=== PATIENT | male | born 1960 | race Caucasian/White ===

== ENCOUNTER 2019-08-11 15:51 | Outpatient (CLI) | payer MEDICARE, OTHER, SELFPAY ==
[2019-08-11 16:20] LABS: Basophils Percent Auto 0.1 % (0.2-1.2); Eosinophils Absolute Auto 0.1 K/mm3 (0-0.3); Eosinophils Percent Auto 1.2 % (0-4.4); Hematocrit 36.9 % (42.0-52.0); Hemoglobin 9.9 g/dL (14.0-18.0); Immature Granulocyte Absolute 0.04 K/mm3 (0.00-0.031); Immature Granulocyte Percent A 0.6 % (0-0.5); Lymphocytes Absolute Auto 0.54 K/mm3 (0.9-3.2); Lymphocytes Percent Auto 7.9 % (18.3-44.2); Mean Corpuscular HGB Conc 26.8 g/dl (32-36); Mean Corpuscular Hemoglobin 21.2 pg (26-34); Mean Corpuscular Volume 78.8 fl (80-100); Mean Platelet Volume 9.3 fl (7.4-10.4); Monocytes Absolute Auto 0.4 K/mm3 (0.1-0.6); Monocytes Percent Auto 6.3 % (2.6-8.5); Neutrophils Absolute Auto 5.7 K/mm3 (1.3-6.7); Neutrophils Percent Auto 83.9 % (45.5-73.1); Platelet Count Result 153 k/mm3 (150-375); Red Blood Count 4.68 M/mm3 (4.6-6.20); Red Cell Distribution Width 20.5 % (11.5-14.5); White Blood Count 6.8 K/mm3 (4.5-10.0)
[2019-08-11 16:31] LABS: Estimated Glomerular Filt Rate > 60
[2019-08-11 16:43] LABS: Alanine Aminotransferase 11 U/L (4-50); Albumin Level 3.3 g/dL (3.5-5.1); Alkaline Phosphatase 113 U/L (38-126); Aspartate Amino Transferase 16 U/L (17-59); Bilirubin,Total 0.4 mg/dL (0.2-1.3); Blood Urea Nitrogen 17 mg/dL (9-20); Calcium 9.6 mg/dL (8.4-10.2); Carbon Dioxide 28 mmol/L (22-30); Chloride 98 mmol/L (98-107); Cholesterol 108 mg/dL (0-200); Glucose 123 mg/dL (75-110); HDL Direct 26 mg/dL; Potassium 4.6 mmol/L (3.4-5.0); Sodium 135 mmol/L (137-145); Triglycerides 242 mg/dL (<150)
[2019-08-11 16:47] LABS: Hypochromasia 1+ (NORMAL); Ovalocytes 1+ (NORMAL); Platelet Estimate Adequate (Adequate)
[2019-08-11 16:48] LABS: LDL Cholesterol Direct 55 mg/dL
[2019-08-11 17:47] LABS: Folic Acid 4.6 ng/mL (2.76->20); Vitamin B12 > 1000.0 pg/mL (239-931)
[2019-08-11 18:52] LABS: Iron 34 ug/dL (49-181)
[2019-08-11 18:57] LABS: Percent Iron Saturation 12 % (20-50)
== END 2019-08-11 15:52 | disposition home or self-care (01) ==
PROVIDERS: PCP Internal Medicine; Visit Provider Internal Medicine
DX: D64.9 Anemia, unspecified (principal); E78.5 Hyperlipidemia, unspecified; R53.83 Other fatigue
CPT/HCPCS: 36415; 80053; 80061; 82607; 82746; 83540; 83550; 84443; 85025

== ENCOUNTER 2019-09-02 17:37 | Outpatient (CLI) | payer MEDICARE, OTHER, SELFPAY ==
[2019-09-02 17:58] LABS: Add Urine Microscopic? YES; Appearance Urine Cloudy (Clear); Bacteria Urine 2+ /hpf; Bilirubin Urine Negative (Negative); Blood Urine 1+ (Negative); Calcium Oxalate Crystals Urine Present /hpf; Color Urine Red (Yellow); Glucose Urine UA Negative (Negative); Ketones Urine Negative (Negative); Leukocyte Esterase Ur 3+ LEU/UL (NEGATIVE); Mucus Urine Rare /lpf; Nitrate Urine Positive (Negative); Protein Urine 1+ mg/dL (Negative); Specific Grav Ur 1.011 (1.001-1.035); Squamous Epithelial Cell Urine Few /hpf (Few); Urobilinogen Urine Negative mg/dL (<2.0); WBC Urine 31-50 /hpf (0-3)
== END 2019-09-02 17:38 | disposition home or self-care (01) ==
LOC: ANHLAB 17:39
PROVIDERS: PCP Internal Medicine; Visit Provider Physician Assistant
DX: R30.0 Dysuria (principal)
CPT/HCPCS: 81001; 87077; 87086; 87088; 87186

== ENCOUNTER 2019-09-21 18:20 | Emergency (ER) | payer MEDICARE, OTHER, SELFPAY ==
--- NOTE | ~2019-09-21 | XR_ITS ---
EXAMINATION: XR chest 1V INDICATION: Chills and sweats TECHNIQUE: Portable AP chest at 2109 hours COMPARISON: 05/12/2014 FINDINGS: There are chronic opacities of the left lung base and blunting of the left costophrenic ang le. The lungs are free of acute opacities. There is no pleural effusion or pneumothorax. The cardiome diastinal silhouette is normal. IMPRESSION: 1. No acute cardiopulmonary abnormality. Reviewed, dictated and finalized at location A.
--- NOTE | 2019-09-21 18:35 | ED.MALEGU ---
HPI - Male Genitourinary General Chief complaint: Urogenital-Male Stated complaint: UTI? Time Seen by Provider: 09/21/19 18:34 Source: patient Mode of arrival: wheelchair Limitations: no limitations History of Present Illness HPI Narrative: A 59 y/o male presents to the ED with c/o possible UTI. Pt states that he has a PMHx of frequent UTI's and has had a suprapubic catheter for the last 20 years. The patient notes that he changes his catheter every 2 weeks, and last changed it this morning. He reports foul smelling urine, diaphoresis, chills, and ABD pain for the last 3 weeks. Pt consulted his infectious disease physician, Dr. Donovan, and they advised him to go to Dr. Harris. The patient could not get ahold of Dr. Harris, so he decided to go to the ED. He denies N/V/D and fever. Pt is usually prescribed Ceftazidime for his UTI's. He is a quadriplegic. MD Complaint: other (Possible UTI) Onset (ago): week(s) (3) Duration: constant Severity: similar to previous episodes Context: indwelling catheter and other (Frequent UTI's) Associated symptoms: Reports other (Foul smelling urine, diaphoresis, chills, ABD pain) Related Data Home Medications Medication Instructions Recorded Confirmed calcium polycarbophil 1,250 mg PO DAILY 05/08/19 05/08/19 diazepam 5 mg BID 06/13/19 06/13/19 glycopyrrolate 2 mg TID 06/13/19 06/13/19 omeprazole 20 mg DAILY 06/13/19 06/13/19 potassium citrate 10 meq PO TID 06/13/19 06/13/19 sertraline 100 mg DAILY 06/13/19 06/13/19 Allergies Allergy/AdvReac Type Severity Reaction Status Date / Time No Known Allergies Allergy Verified 06/13/19 15:53 Review of Systems Review of Systems: All systems reviewed & are unremarkable except as noted in HPI and below Constitutional: Constitutional: Reports chills and Denies fever(s) Cardiovascular: Cardiovascular: Reports other (Diaphoresis) Gastrointestinal: Gastrointestinal: Reports abdominal pain, Denies diarrhea, Denies nausea and Denies vomiting Genitourinary: Genitourinary: Reports other (Foul smelling urine) PMFSH Past Medical History Medical History (Updated 09/21/19 @ 21:22 by Hailey Harvey MD) Anxiety Arthritis Chronic back pain Depression DVT (deep venous thrombosis) Femur fracture, right Frequent UTI GERD (gastroesophageal reflux disease) History of blood transfusion Kidney stones Osteomyelitis Perforated ulcer Peripheral neuropathy Pneumonia PVD (peripheral vascular disease) 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 Renal disease Suprapubic catheter Tracheostomy in place Surgical History Surgical History (Updated 09/21/19 @ 19:01 by Sherry Sloan) History of cholecystectomy History of left nephrectomy History of skin graft History of spinal fusion C5-C6 Family History Family History Mother Hypertension Father Family history of diabetes mellitus in first degree relative, Onset Age: 85 Patient's father is Other Diabetes mellitus Social History Social History Smoking status: Former smoker Second hand tobacco smoke exposure: No Smoking end date: 07/09/97 Alcohol intake: never Gender identity (if verbalized by the patient): Male Exam Narrative: Exam Narrative: General appearance: Well-developed, well-nourished Skin: Normal color, left foot decubitus ulcer is well healed, right foot decubitus ulcer 5 x 5 cm, yellow discharge, surrounded by erythema, warm. Sacral decubitus ulcer showed no signs of infection. Is getting better according to patient's . Head: Normocephalic, nontraumatic Eyes: Clear conjunctiva ENT: Oropharynx normal, ears normal, nose normal Neck: Supple, nontender Chest and respiratory: Airway patent, no respiratory distress, no accessory muscle use Heart: Regular rate/rhythm Abdomen: Soft, nontender, no organomegaly, quiet bowel sounds Vascular: Normal peripher
[2019-09-21 18:56] VITALS: BP 176/82; PULSE 93; RESP 16; TEMP 36.4; O2SAT 98
[2019-09-21 19:51] LABS: Basophils Percent Auto 0.4 % (0.2-1.2); Eosinophils Absolute Auto 0.2 K/mm3 (0-0.3); Eosinophils Percent Auto 1.4 % (0-4.4); Hematocrit 47.8 % (42.0-52.0); Immature Granulocyte Absolute 0.07 K/mm3 (0.00-0.031); Immature Granulocyte Percent A 0.6 % (0-0.5); Lymphocytes Absolute Auto 1.64 K/mm3 (0.9-3.2); Lymphocytes Percent Auto 14.5 % (18.3-44.2); Mean Corpuscular HGB Conc 27.2 g/dl (32-36); Mean Corpuscular Volume 77.3 fl (80-100); Mean Platelet Volume 8.8 fl (7.4-10.4); Monocytes Absolute Auto 0.8 K/mm3 (0.1-0.6); Monocytes Percent Auto 6.9 % (2.6-8.5); Neutrophils Absolute Auto 8.6 K/mm3 (1.3-6.7); Neutrophils Percent Auto 76.2 % (45.5-73.1); Platelet Count Result 291 k/mm3 (150-375); Red Blood Count 6.18 M/mm3 (4.6-6.20); Red Cell Distribution Width 17.9 % (11.5-14.5); White Blood Count 11.3 K/mm3 (4.5-10.0)
--- NOTE | 2019-09-21 19:55 | PC.NURSE ---
assumed care of pt at this time. report from ABHI Lucio
[2019-09-21 20:01] LABS: Add Urine Microscopic? NO; Appearance Urine Clear (Clear); Bacteria Urine Trace /hpf; Bilirubin Urine Negative (Negative); Blood Urine Negative (Negative); Color Urine Colorless (Yellow); Glucose Urine UA Negative (Negative); Ketones Urine Negative (Negative); Leukocyte Esterase Ur Negative LEU/UL (Negative); Nitrate Urine Negative (Negative); Protein Urine Negative (Negative); RBC Urine 0-2 /hpf (0-2); Specific Grav Ur 1.005 (1.001-1.035); Squamous Epithelial Cell Urine Rare /hpf (Few); Urobilinogen Urine Negative mg/dL (<2.0); WBC Urine 0-3 /hpf
[2019-09-21 20:02] LABS: Lactic Acid Reflex 1.7 mmol/L (0.7-2.1)
[2019-09-21 20:03] LABS: Alanine Aminotransferase 11 U/L (4-50); Albumin Level 4.2 g/dL (3.5-5.1); Alkaline Phosphatase 181 U/L (38-126); Aspartate Amino Transferase 23 U/L (17-59); Bilirubin,Total 0.7 mg/dL (0.2-1.3); Blood Urea Nitrogen 13 mg/dL (9-20); Calcium 10.5 mg/dL (8.4-10.2); Carbon Dioxide 32 mmol/L (22-30); Chloride 98 mmol/L (98-107); Estimated Glomerular Filt Rate > 60; Glucose 105 mg/dL (75-110); Sodium 139 mmol/L (137-145)
[2019-09-21 20:12] LABS: Hypochromasia 1+ (NORMAL); Platelet Estimate Adequate (Adequate)
[2019-09-21 20:14] LABS: Anisocytosis 2+ (NORMAL)
[2019-09-21 20:30] VITALS: BP 91/62; PULSE 97; RESP 21; TEMP 36.2; O2SAT 99
[2019-09-21 20:55] VITALS: BP 100/68; PULSE 90; RESP 16; O2SAT 99
[2019-09-21 21:20] VITALS: TEMP 36.4
[2019-09-21 22:00] VITALS: BP 108/84; PULSE 95; RESP 16; O2SAT 99
[2019-09-21 23:20] VITALS: BP 102/75; PULSE 78; RESP 17; O2SAT 100
== END 2019-09-21 23:20 | disposition home or self-care (01) ==
PROVIDERS: Emergency Provider Emergency Medicine; PCP Internal Medicine
DX: L03.115 Cellulitis of right lower limb (principal); M19.90 Unspecified osteoarthritis, unspecified site; G82.50 Quadriplegia, unspecified; S14.109S Unspecified injury at unspecified level of cervical spinal cord, sequela; K21.9 Gastro-esophageal reflux disease without esophagitis; G62.9 Polyneuropathy, unspecified; I73.9 Peripheral vascular disease, unspecified; N28.9 Disorder of kidney and ureter, unspecified; F41.9 Anxiety disorder, unspecified; F32.9 Major depressive disorder, single episode, unspecified; Z90.5 Acquired absence of kidney; Z86.718 Personal history of other venous thrombosis and embolism; Z98.1 Arthrodesis status; Z87.442 Personal history of urinary calculi; Z87.891 Personal history of nicotine dependence; Z93.0 Tracheostomy status; X58.XXXS Exposure to other specified factors, sequela
CPT/HCPCS: 36415; 71045; 80053; 81003; 83605; 85025; 87040; 96365; 99284; J3370

== ENCOUNTER 2019-09-25 07:21 | Outpatient (RCR) | payer MEDICARE, OTHER, SELFPAY | END 2019-10-29 23:59 | disposition home or self-care (01) | LOC: ANHWOC 07:21 | PROVIDERS: PCP Internal Medicine; Visit Provider Internal Medicine | DX: L89.159 Pressure ulcer of sacral region, unspecified stage (principal) | CPT/HCPCS: 99212; G0463 ==

== ENCOUNTER 2019-09-30 14:31 | Outpatient (CLI) | payer MEDICARE, OTHER, SELFPAY ==
[2019-09-30 14:51] LABS: Basophils Percent Auto 0.2 % (0.2-1.2); Eosinophils Absolute Auto 0.1 K/mm3 (0-0.3); Eosinophils Percent Auto 1.7 % (0-4.4); Hematocrit 35.6 % (42.0-52.0); Hemoglobin 9.8 g/dL (14.0-18.0); Immature Granulocyte Absolute 0.03 K/mm3 (0.00-0.031); Immature Granulocyte Percent A 0.4 % (0-0.5); Immature Reticulocyte Fraction 13.1 % (3.0-15.9); Lymphocytes Absolute Auto 0.79 K/mm3 (0.9-3.2); Lymphocytes Percent Auto 9.6 % (18.3-44.2); Mean Corpuscular HGB Conc 27.5 g/dl (32-36); Mean Corpuscular Hemoglobin 21.5 pg (26-34); Mean Corpuscular Volume 78.2 fl (80-100); Monocytes Absolute Auto 0.6 K/mm3 (0.1-0.6); Monocytes Percent Auto 6.7 % (2.6-8.5); Neutrophils Absolute Auto 6.7 K/mm3 (1.3-6.7); Neutrophils Percent Auto 81.4 % (45.5-73.1); Platelet Count Result 179 k/mm3 (150-375); Red Blood Count 4.55 M/mm3 (4.6-6.20); Red Cell Distribution Width 17.3 % (11.5-14.5); Reticulocyte Hemoglobin Conten 20.4 pg (28.2-35.7); Reticulocyte Percent 2.01 % (0.7-4.3); Reticulocytes Absolute 0.09 B/L (32.2-175.7); White Blood Count 8.2 K/mm3 (4.5-10.0)
[2019-09-30 15:01] LABS: Hypochromasia 2+ (NORMAL); Platelet Estimate Adequate (Adequate)
[2019-09-30 17:47] LABS: Alanine Aminotransferase 7 U/L (4-50); Albumin Level 3.2 g/dL (3.5-5.1); Alkaline Phosphatase 95 U/L (38-126); Aspartate Amino Transferase 14 U/L (17-59); Bilirubin,Total 0.2 mg/dL (0.2-1.3); Blood Urea Nitrogen 16 mg/dL (9-20); Calcium 9.6 mg/dL (8.4-10.2); Carbon Dioxide 28 mmol/L (22-30); Chloride 105 mmol/L (98-107); Estimated Glomerular Filt Rate > 60; Glucose 112 mg/dL (75-110); Potassium 4.4 mmol/L (3.4-5.0); Sodium 139 mmol/L (137-145)
[2019-09-30 18:34] LABS: Iron 29 ug/dL (49-181)
[2019-09-30 18:45] LABS: Percent Iron Saturation 10 % (20-50)
[2019-10-02 22:10] LABS: Albumin 2.9 g/dL (3.8-4.8); Alpha 1 Globulin 0.5 g/dL (0.2-0.3); Alpha 2 Globulin 0.8 g/dL (0.5-0.9); Beta 1 Globulin 0.5 g/dL (0.4-0.6); Gamma Globulin 1.2 g/dL (0.8-1.7); Protein, Total 6.3 g/dL (6.1-8.1)
== END 2019-09-30 14:32 | disposition home or self-care (01) ==
PROVIDERS: PCP Internal Medicine; Visit Provider Internal Medicine Hematology & Oncology
DX: D64.9 Anemia, unspecified (principal)
CPT/HCPCS: 36415; 80053; 82728; 83540; 83550; 84155; 84165; 84590; 85025; 85046; 86334

== ENCOUNTER 2019-10-28 13:58 | Outpatient (CLI) | payer MEDICARE, OTHER, SELFPAY ==
[2019-10-28 15:46] LABS: Basophils Percent Auto 0.4 % (0.2-1.2); Eosinophils Absolute Auto 0.1 K/mm3 (0-0.3); Eosinophils Percent Auto 1.6 % (0-4.4); Hematocrit 40.4 % (42.0-52.0); Hemoglobin 11.3 g/dL (14.0-18.0); Immature Granulocyte Absolute 0.05 K/mm3 (0.00-0.031); Immature Granulocyte Percent A 0.7 % (0-0.5); Lymphocytes Absolute Auto 0.76 K/mm3 (0.9-3.2); Mean Corpuscular Hemoglobin 22.2 pg (26-34); Mean Corpuscular Volume 79.2 fl (80-100); Mean Platelet Volume 8.9 fl (7.4-10.4); Monocytes Absolute Auto 0.5 K/mm3 (0.1-0.6); Monocytes Percent Auto 6.1 % (2.6-8.5); Neutrophils Absolute Auto 6.2 K/mm3 (1.3-6.7); Neutrophils Percent Auto 81.2 % (45.5-73.1); Platelet Count Result 191 k/mm3 (150-375); Red Cell Distribution Width 20.2 % (11.5-14.5); White Blood Count 7.6 K/mm3 (4.5-10.0)
[2019-10-28 16:15] LABS: Hypochromasia 1+ (NORMAL); Platelet Estimate Adequate (Adequate)
[2019-10-28 16:16] LABS: Anisocytosis 3+ (NORMAL)
[2019-10-31 20:54] LABS: CRP, High Sensitivity >10.0 mg/L (***)
== END 2019-10-28 13:59 | disposition home or self-care (01) ==
PROVIDERS: PCP Internal Medicine; Visit Provider Internal Medicine Infectious Disease
DX: N39.0 Urinary tract infection, site not specified (principal)
CPT/HCPCS: 36415; 85025; 86141

== ENCOUNTER 2019-10-29 17:07 | Outpatient (CLI) | payer MEDICARE, OTHER, SELFPAY ==
[2019-10-29 18:20] LABS: Add Urine Microscopic? YES; Appearance Urine Clear (Clear); Bacteria Urine 1+ /hpf; Bilirubin Urine Negative (Negative); Blood Urine Negative (Negative); Color Urine Straw (Yellow); Glucose Urine UA Negative (Negative); Ketones Urine Negative (Negative); Leukocyte Esterase Ur 1+ LEU/UL (Negative); Nitrate Urine Negative (Negative); Protein Urine Negative (Negative); RBC Urine 0-2 /hpf (0-2); Squamous Epithelial Cell Urine Few /hpf (Few); Urobilinogen Urine Negative mg/dL (<2.0)
[2019-10-29 18:23] LABS: Specific Grav Ur 1.002 (1.001-1.035)
== END 2019-10-29 17:08 | disposition home or self-care (01) ==
PROVIDERS: PCP Internal Medicine; Visit Provider Internal Medicine Infectious Disease
DX: N39.0 Urinary tract infection, site not specified (principal)
CPT/HCPCS: 81001

== ENCOUNTER 2019-10-30 16:06 | Outpatient (CLI) | payer MEDICARE, OTHER, SELFPAY ==
--- NOTE | ~2019-10-30 | US_ITS ---
EXAMINATION: US renal BI EXAM DATE: 10/30/2019 16:39 INDICATION: Frequent urinary tract infection. TECHNIQUE: Multiple grayscale and Doppler images of the kidneys were obtained (by a technologist who performed the scan) and subsequently reviewed. Comparison is made to prior examination from 03/04/2014 . FINDINGS: Right kidney: There is normal contour and echogenicity. It measures 12.4 x 6.7 x 6.0 centimeters. T here are no focal renal lesions identified. There is no hydronephrosis. Left kidney: Reportedly has been resected. Unremarkable nephrectomy bed. Kelly catheter within collapsed bladder. IMPRESSION: 1. Unremarkable right kidney. Reviewed, dictated and finalized at location A.
== END 2019-10-30 16:07 | disposition home or self-care (01) ==
PROVIDERS: PCP Internal Medicine; Visit Provider Internal Medicine Infectious Disease
DX: N39.0 Urinary tract infection, site not specified (principal)
CPT/HCPCS: 76775

== ENCOUNTER 2020-06-16 07:47 | Outpatient (CLI) | payer MEDICARE, OTHER, SELFPAY ==
[2020-06-16 08:58] LABS: Basophils Percent Auto 0.6 % (0.2-1.2); Eosinophils Absolute Auto 0.2 K/mm3 (0-0.3); Eosinophils Percent Auto 2.6 % (0-4.4); Hematocrit 41.2 % (42.0-52.0); Hemoglobin 12.4 g/dL (14.0-18.0); Immature Granulocyte Absolute 0.11 K/mm3 (0.00-0.031); Immature Granulocyte Percent A 1.6 % (0-0.5); Lymphocytes Absolute Auto 0.81 K/mm3 (0.9-3.2); Lymphocytes Percent Auto 11.9 % (18.3-44.2); Mean Corpuscular HGB Conc 30.1 g/dl (32-36); Mean Corpuscular Hemoglobin 25.5 pg (26-34); Mean Corpuscular Volume 84.6 fl (80-100); Mean Platelet Volume 8.6 fl (7.4-10.4); Monocytes Absolute Auto 0.5 K/mm3 (0.1-0.6); Monocytes Percent Auto 7.9 % (2.6-8.5); Neutrophils Absolute Auto 5.1 K/mm3 (1.3-6.7); Neutrophils Percent Auto 75.4 % (45.5-73.1); Platelet Count Result 160 k/mm3 (150-375); Red Blood Count 4.87 M/mm3 (4.6-6.20); White Blood Count 6.8 K/mm3 (4.5-10.0)
[2020-06-16 09:09] LABS: Alanine Aminotransferase 10 U/L (4-50); Albumin Level 3.4 g/dL (3.5-5.1); Alkaline Phosphatase 125 U/L (38-126); Anion Gap 5 mmol/L (8-16); Aspartate Amino Transferase 14 U/L (17-59); Bilirubin,Total 0.4 mg/dL (0.2-1.3); Blood Urea Nitrogen 18 mg/dL (9-20); Calcium 9.9 mg/dL (8.4-10.2); Carbon Dioxide 31 mmol/L (22-30); Chloride 105 mmol/L (98-107); Cholesterol 109 mg/dL (0-200); Estimated Glomerular Filt Rate > 60; Glucose 94 mg/dL (75-110); HDL Direct 20 mg/dL; Potassium 4.5 mmol/L (3.4-5.0); Sodium 141 mmol/L (137-145); Triglycerides 143 mg/dL (<150)
[2020-06-16 09:20] LABS: LDL Cholesterol Direct 63 mg/dL
[2020-06-16 09:21] LABS: Parathyroid Intact 111.2 pg/mL (7.5-53.5)
[2020-06-16 09:32] LABS: Iron 33 ug/dL (49-181)
[2020-06-16 09:41] LABS: Percent Iron Saturation 13 % (20-50)
[2020-06-16 09:45] LABS: Vitamin D 25 Hydroxy 30.5 ng/mL
[2020-06-16 10:25] LABS: Folic Acid 10.2 ng/mL (2.76->20); Vitamin B12 > 1000.0 pg/mL (239-931)
== END 2020-06-16 07:48 | disposition home or self-care (01) ==
PROVIDERS: PCP Internal Medicine; Visit Provider Internal Medicine
DX: D64.9 Anemia, unspecified (principal); E83.52 Hypercalcemia; E78.5 Hyperlipidemia, unspecified; E55.9 Vitamin D deficiency, unspecified; R53.83 Other fatigue
CPT/HCPCS: 36415; 80053; 80061; 82306; 82310; 82607; 82746; 83540; 83550; 83970; 84443; 85025

== ENCOUNTER 2020-07-07 07:20 | Outpatient (RCR) | payer MEDICARE, OTHER, SELFPAY ==
--- NOTE | 2019-11-04 14:40 | PCWOUND ---
Addendum entered by Lee Butcher RN 11/06/19 09:22: should say, pt reports no significant changes. Original Note: WOCn NOTE patient cancelled due to COVID 19. reports to significant changes in wounds. Will reschedule for next month. did phone assessment.
--- NOTE | 2020-01-30 14:34 | PCWOUND ---
WOCN NOTE Patient in need of supplies for pressure wounds to bilateral posterior thigh and buttocks. Patient unable to come into the wound center due to COVID-19 restrictions.
== END 2020-07-28 23:59 | disposition home or self-care (01) ==
LOC: ANHWOC 07:20
PROVIDERS: PCP Internal Medicine; Visit Provider Internal Medicine
DX: L89.159 Pressure ulcer of sacral region, unspecified stage (principal)
CPT/HCPCS: 99212; G0463

== ENCOUNTER 2020-09-01 07:12 | Outpatient (RCR) | payer MEDICARE, OTHER, SELFPAY ==
--- NOTE | 2020-10-13 08:00 | PCWOUND ---
WOCN NOTE patient did not show up for his scheduled appointment. No phone call was made to cancel.
== END 2020-11-30 23:59 | disposition home or self-care (01) ==
LOC: ANHWOC 07:12
PROVIDERS: PCP Internal Medicine; Visit Provider Internal Medicine
DX: L89.159 Pressure ulcer of sacral region, unspecified stage (principal)
CPT/HCPCS: 99213; G0463

== ENCOUNTER 2020-12-22 07:16 | Outpatient (RCR) | payer MEDICARE, OTHER, SELFPAY | END 2021-03-22 23:59 | disposition home or self-care (01) | LOC: ANHWOC 07:16 | PROVIDERS: PCP Internal Medicine; Visit Provider Internal Medicine | DX: L89.309 Pressure ulcer of unspecified buttock, unspecified stage (principal) | CPT/HCPCS: 99212; G0463 ==

== ENCOUNTER 2021-03-04 09:28 | Outpatient (CLI) | payer MEDICARE, OTHER, SELFPAY ==
[2021-03-04 10:04] LABS: Basophils Percent Auto 0.5 % (0.2-1.2); Eosinophils Absolute Auto 0.2 K/mm3 (0-0.3); Eosinophils Percent Auto 1.9 % (0-4.4); Hematocrit 41.7 % (42.0-52.0); Hemoglobin 12.2 g/dL (14.0-18.0); Immature Granulocyte Absolute 0.13 K/mm3 (0.00-0.031); Immature Granulocyte Percent A 1.5 % (0-0.5); Lymphocytes Absolute Auto 1.14 K/mm3 (0.9-3.2); Lymphocytes Percent Auto 13.5 % (18.3-44.2); Mean Corpuscular HGB Conc 29.3 g/dl (32-36); Mean Corpuscular Hemoglobin 25.1 pg (26-34); Mean Corpuscular Volume 85.6 fl (80-100); Mean Platelet Volume 8.4 fl (7.4-10.4); Monocytes Absolute Auto 0.8 K/mm3 (0.1-0.6); Monocytes Percent Auto 9.1 % (2.6-8.5); Neutrophils Absolute Auto 6.2 K/mm3 (1.3-6.7); Neutrophils Percent Auto 73.5 % (45.5-73.1); Platelet Count Result 223 k/mm3 (150-375); Red Blood Count 4.87 M/mm3 (4.6-6.20); Red Cell Distribution Width 15.7 % (11.5-14.5); White Blood Count 8.4 K/mm3 (4.5-10.0)
[2021-03-04 10:26] LABS: Alanine Aminotransferase 9 U/L (4-50); Albumin Level 3.8 g/dL (3.5-5.1); Alkaline Phosphatase 108 U/L (38-126); Anion Gap 8 mmol/L (8-16); Aspartate Amino Transferase 16 U/L (17-59); Bilirubin,Total 0.3 mg/dL (0.2-1.3); Blood Urea Nitrogen 16 mg/dL (9-20); Calcium 10.3 mg/dL (8.4-10.2); Carbon Dioxide 27 mmol/L (22-30); Chloride 102 mmol/L (98-107); Cholesterol 135 mg/dL (0-200); Estimated Glomerular Filt Rate > 60; Glucose 97 mg/dL (65-110); HDL Direct 27 mg/dL; Potassium 4.2 mmol/L (3.4-5.0); Sodium 137 mmol/L (137-145); Triglycerides 200 mg/dL (<150)
[2021-03-04 10:38] LABS: LDL Cholesterol Direct 74 mg/dL
[2021-03-04 10:49] LABS: Erythrocyte Sedimentation Rate 27 mm/hr (0-20)
[2021-03-04 10:57] LABS: Thyroid Stimulating Hormone 0.727 uIU/mL (0.465-4.680)
[2021-03-04 10:59] LABS: Vitamin D 25 Hydroxy 32.1 ng/mL
[2021-03-04 12:04] LABS: Atypical Lymphocytes Present; Platelet Estimate Adequate (Adequate)
[2021-03-04 14:22] LABS: Iron 40 ug/dL (49-181); Percent Iron Saturation 21 % (20-50)
[2021-03-04 15:37] LABS: Folic Acid 9.1 ng/mL (2.76->20); Vitamin B12 > 1000.0 pg/mL (239-931)
[2021-03-04 18:50] LABS: Prostate Specific Antigen 0.5 ng/mL (< OR = 4.0)
== END 2021-03-04 09:29 | disposition home or self-care (01) ==
PROVIDERS: PCP Internal Medicine; Visit Provider Internal Medicine
DX: E61.1 Iron deficiency (principal); E78.5 Hyperlipidemia, unspecified; R53.83 Other fatigue; Z12.5 Encounter for screening for malignant neoplasm of prostate; M54.9 Dorsalgia, unspecified; E53.8 Deficiency of other specified B group vitamins; E55.9 Vitamin D deficiency, unspecified
CPT/HCPCS: 36415; 80053; 80061; 82306; 82607; 82728; 82746; 83540; 83550; 84153; 84443; 85025; 85652; G0103

== ENCOUNTER 2021-05-08 17:46 | Emergency (ER) | payer MEDICARE, OTHER, SELFPAY ==
[2021-05-08 17:57] VITALS: BP 95/48; PULSE 109; RESP 18; TEMP 36.7; O2SAT 100
--- NOTE | 2021-05-08 18:27 | ED.EYEPROB ---
HPI - Eye Problem General Chief complaint: Eye Problems Stated complaint: Eye pain Source: patient and RN notes reviewed Limitations: no limitations History of Present Illness HPI Narrative: The patient, who is a C5-7 quadriparetic in wheelchair, presents with eye discomfort. Patient states he wears extended contact lens in his right eye for near vision. He removed the lens and replace it with his 's assistance today and developed discomfort afterwards. He complains of mild watery discharge and discomfort that is worse with blinking unimproved with tobramycin cream his spouse had; no significant infectious discharge, photophobia. He added his and he has long fingernails, when she assists him. He comments his local pharmacy has closed, so was advised he may take previous home pain meds including opiates [at half tab]. Related Data Home Medications Medication Instructions Recorded Confirmed potassium citrate 10 meq PO TID 06/13/19 05/08/21 ascorbic acid (vitamin C) 500 mg 1,000 mg PO DAILY cap 10/30/19 05/08/21 capsule ferrous sulfate 324 mg (65 mg 324 mg PO DAILY 10/30/19 05/08/21 iron) tablet,delayed release sennosides 8.6 mg-docusate sodium 1 tab-cap PO DAILY 10/30/19 01/03/21 50 mg tablet bupropion HCl 150 mg 24 hr tablet, 150 mg PO QAM 04/19/21 05/08/21 extended release cod liver oil 1 cap PO DAILY 04/19/21 05/08/21 donepezil 5 mg tablet 10 mg PO DAILY tablet 04/19/21 05/08/21 duloxetine 60 mg capsule,delayed 60 mg PO DAILY 04/19/21 05/08/21 release gabapentin 300 mg capsule 300 mg PO BID cap 04/19/21 04/19/21 lysine 1,000 mg tablet 1,000 mg PO DAILY 04/19/21 04/19/21 mecobalamin (vitamin B12) 5,000 mcg PO 04/19/21 04/19/21 mcg disintegrating tablet vitamin E (dl, acetate) 180 mg 180 mg PO DAILY 04/19/21 05/08/21 (400 unit) capsule baclofen 40 mg PO TID 05/08/21 05/08/21 cholecalciferol (vitamin D3) 25 mcg PO DAILY 05/08/21 05/08/21 ciprofloxacin HCl 250 mg PO DAILY 05/08/21 05/08/21 diazepam 5 mg PO TID 05/08/21 05/08/21 duloxetine 30 mg PO DAILY 05/08/21 05/08/21 vortioxetine [Trintellix] 10 mg PO DAILY 05/08/21 05/08/21 Allergies Allergy/AdvReac Type Severity Reaction Status Date / Time No Known Allergies Allergy Verified 05/08/21 18:10 Review of Systems Review of Systems: General/Constitutional: No weight loss,fever Eyes: REPORTS: Redness,discharge Ears/Nose/Throat: No: Epistaxis,ear discharge Respiratory: Denies: Hemoptysis Gastrointestinal: No Vomiting, Bleeding-rectal Skin: No Lumps, eruption Neurologic: No Focal Weakness,Sz Hematologic: Denies: Petechiae/Purpura Psychiatric: No: Suicida ideationl All Other Systems: Reviewed and Negative [facility] Past Medical History Medical History (Updated 05/09/21 @ 00:01 by Johnathon Greer) Anxiety Arthritis Chronic back pain Depression DVT (deep venous thrombosis) Femur fracture, right Frequent UTI GERD (gastroesophageal reflux disease) History of blood transfusion Kidney stones Osteomyelitis Perforated ulcer Peripheral neuropathy Pneumonia PVD (peripheral vascular disease) 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
[2021-05-08] MEDS: predniSONE 20 MG TABLET 60 MG PO (18:37)
== END 2021-05-08 18:41 | disposition home or self-care (01) ==
PROVIDERS: Emergency Provider Emergency Medicine; PCP Internal Medicine
DX: S05.01XA Injury of conjunctiva and corneal abrasion without foreign body, right eye, initial encounter (principal); X58.XXXA Exposure to other specified factors, initial encounter; G82.50 Quadriplegia, unspecified; S14.107S Unspecified injury at C7 level of cervical spinal cord, sequela; X58.XXXS Exposure to other specified factors, sequela; M19.90 Unspecified osteoarthritis, unspecified site; F41.9 Anxiety disorder, unspecified; F32.A Depression, unspecified; Z86.718 Personal history of other venous thrombosis and embolism; K21.9 Gastro-esophageal reflux disease without esophagitis; G62.9 Polyneuropathy, unspecified; I73.9 Peripheral vascular disease, unspecified; Z96.0 Presence of urogenital implants; Z93.0 Tracheostomy status; Z90.5 Acquired absence of kidney
CPT/HCPCS: 99213; A9270; G0463; J7512

== ENCOUNTER 2021-05-11 07:18 | Outpatient (RCR) | payer MEDICARE, OTHER, SELFPAY ==
--- NOTE | 2021-05-05 08:39 | PCWOUND ---
WOCN NOTE patient left message to cancel for Today's appointment due to its raining. states he will call later in the day to reschedule.
== END 2021-08-09 23:59 | disposition home or self-care (01) ==
LOC: ANHWOC 07:18
PROVIDERS: PCP Internal Medicine; Visit Provider Internal Medicine
DX: L89.309 Pressure ulcer of unspecified buttock, unspecified stage (principal)
CPT/HCPCS: 99212; G0463

== ENCOUNTER 2021-06-06 16:00 | Outpatient (CLI) | payer MEDICARE, OTHER, SELFPAY ==
[2021-06-06 16:22] LABS: Basophils Percent Auto 0.3 % (0.2-1.2); Eosinophils Absolute Auto 0.1 K/mm3 (0-0.3); Eosinophils Percent Auto 1.7 % (0-4.4); Hematocrit 36.8 % (42.0-52.0); Hemoglobin 10.9 g/dL (14.0-18.0); Immature Granulocyte Absolute 0.13 K/mm3 (0.00-0.031); Immature Granulocyte Percent A 1.7 % (0-0.5); Lymphocytes Absolute Auto 0.67 K/mm3 (0.9-3.2); Lymphocytes Percent Auto 8.5 % (18.3-44.2); Mean Corpuscular HGB Conc 29.6 g/dl (32-36); Mean Corpuscular Hemoglobin 24.5 pg (26-34); Mean Corpuscular Volume 82.9 fl (80-100); Mean Platelet Volume 8.4 fl (7.4-10.4); Monocytes Absolute Auto 0.7 K/mm3 (0.1-0.6); Monocytes Percent Auto 8.3 % (2.6-8.5); Neutrophils Absolute Auto 6.2 K/mm3 (1.3-6.7); Neutrophils Percent Auto 79.5 % (45.5-73.1); Platelet Count Result 203 k/mm3 (150-375); Red Blood Count 4.44 M/mm3 (4.6-6.20); Red Cell Distribution Width 15.8 % (11.5-14.5); White Blood Count 7.8 K/mm3 (4.5-10.0)
[2021-06-06 17:12] LABS: Anion Gap 7 mmol/L (8-16); Blood Urea Nitrogen 17 mg/dL (9-20); Calcium 9.9 mg/dL (8.4-10.2); Carbon Dioxide 27 mmol/L (22-30); Chloride 100 mmol/L (98-107); Estimated Glomerular Filt Rate > 60; Glucose 128 mg/dL (65-110); Potassium 4.2 mmol/L (3.4-5.0); Sodium 134 mmol/L (137-145)
[2021-06-06 17:14] LABS: Iron 37 ug/dL (49-181)
[2021-06-06 17:24] LABS: Percent Iron Saturation 18 % (20-50)
[2021-06-10 17:11] LABS: Soluble Transferrin Receptor 1.45 mg/L (0.76-1.76)
== END 2021-06-06 16:01 | disposition home or self-care (01) ==
LOC: ANHLAB 16:03
PROVIDERS: PCP Internal Medicine; Visit Provider Internal Medicine Hematology & Oncology
DX: D64.9 Anemia, unspecified (principal)
CPT/HCPCS: 36415; 80048; 82607; 82728; 83540; 83550; 84238; 85025

== ENCOUNTER 2021-07-11 00:30 | Day surgery (SDC) | payer MEDICARE, SELFPAY ==
[2021-06-27 14:04] VITALS: BMI 25.1
[2021-07-11 06:44] VITALS: BP 128/53; PULSE 56; RESP 16; TEMP 36.1; O2SAT 100; BMI 25.1
--- NOTE | 2021-07-11 07:01 | WPDANESEPPF ---
Anes - Initial Pre Proc Eval Procedure: Operation Date: 07/11/21 07:30 Proposed Procedures p Esophagogastroduodenoscopy - Gilbert Topete MD Date/Time: 07/11/21 07:01 Surgeon: Gilbert Topete MD Pre Op Diagnosis: dysphagia Patient Data Age: 60 Gender: M Height: 1.83 m Weight: 84 kg Last Vital Signs Temp 36.1 C L 07/11/21 06:44 Pulse 56 L 07/11/21 06:44 Resp 16 07/11/21 06:44 BP 128/53 L 07/11/21 06:44 Pulse Ox 100 07/11/21 06:44 Allergies Allergy/AdvReac Type Severity Reaction Status Date / Time No Known Allergies Allergy Verified 06/08/21 14:22 Home Medications Medication Instructions Recorded Confirmed Type potassium citrate 10 meq PO TID 06/13/19 06/27/21 History ascorbic acid (vitamin C) 500 mg 500 mg PO BID cap 10/30/19 06/27/21 History capsule ferrous sulfate 324 mg (65 mg 324 mg PO DAILY 10/30/19 06/27/21 History iron) tablet,delayed release sennosides 8.6 mg-docusate sodium 1 tab-cap PO DAILY 10/30/19 06/27/21 History 50 mg tablet bupropion HCl 150 mg 24 hr tablet, 150 mg PO QAM 04/19/21 06/27/21 History extended release cod liver oil 1 cap PO DAILY 04/19/21 06/27/21 History donepezil 5 mg tablet 10 mg PO DAILY tablet 04/19/21 06/27/21 History gabapentin 300 mg capsule 300 mg PO BID cap 04/19/21 06/27/21 History mecobalamin (vitamin B12) 5,000 5,000 mcg PO DAILY 04/19/21 06/27/21 History mcg disintegrating tablet vitamin E (dl, acetate) 180 mg 180 mg PO DAILY 04/19/21 06/27/21 History (400 unit) capsule omeprazole 20 mg capsule,delayed 20 mg PO DAILY #90 cap 05/05/21 06/27/21 Rx release baclofen 40 mg PO TID 05/08/21 06/27/21 History cholecalciferol (vitamin D3) 25 mcg PO DAILY 05/08/21 06/27/21 History ciprofloxacin HCl 250 mg PO DAILY 05/08/21 06/27/21 History diazepam 5 mg PO BID 05/08/21 06/27/21 History duloxetine 30 mg PO DAILY 05/08/21 06/27/21 History sulfacetamide sodium [Bleph-10] 2 drp RIGHT EYE Q4H #5 ml 05/08/21 06/27/21 Rx glycopyrrolate 2 mg tablet 2 mg PO TID #270 tablet 05/11/21 06/27/21 Rx Lexapro 10 mg BYMOUTH DAILY 06/27/21 06/27/21 History Patient hx anesthesia problems: none Family hx anesthesia problems: none Results Review: All pre-operative results and documents have been reviewed as part of the pre-operative evaluation. 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 Renal disease Suprapubic catheter Tracheostomy in place Surgical History Surgical History History of cholecystectomy History of left nephrectomy History of skin graft History of spinal fusion C5-C6 Family History Family History Mother Hypertension Father Family history of diabetes mellitus in first degree relative, Onset Age: 85 Patient's father is Other Diabetes mellitus Social History Social History Smoking packs per day: 1 Smoking cigarettes per day: 20.0 Years smoked: 15 Smoking pack-years: 15.00 Smoking status: Former smoker Tobacco type: cigarettes Second hand tobacco smoke exposure: No Smoking end date: 06/14/00 Alcohol intake: former Substance use: never Substance use type: does not use Living arrangements: with family Gender identity (if verbalized by the patient): Male Spiritual care concerns: No Anes - Eval Final PreProcedure Day of Procedure 07/11/21 07:01 Patient weight: normal Heart: regular rate and rhythm Lungs: cecil
[2021-07-11] MEDS: LACTATED RINGERS 1,000 ML 150 ML IV CONT (07:16)
--- NOTE | 2021-07-11 07:38 | WPDGICN ---
Assessment and Plan Assessment and plan (1) Dysphagia: Code(s): R13.10 - Dysphagia, unspecified Status: Acute Assessment and Plan: Patient has some difficulty swallowing. This is nonspecific with all foods. Plan to evaluate this with EGD. Remaining upright while eating with softer foods peers appropriate initially further recommendations will be given after endoscopy. (2) Epigastric pain: Code(s): R10.13 - Epigastric pain Status: Acute Assessment and Plan: Patient with rather vague abdominal pain. Appears more noticeably in the upper abdomen. An EGD will be performed to evaluate more thoroughly. Trial of antacids appears prudent. Currently patient is maintained on omeprazole 20mg p.o. daily. (3) Quadriplegia, C5-C7 incomplete: Code(s): G82.54 - Quadriplegia, C5-C7 incomplete Status: Acute GI Consult Note Consult date/time: 07/11/21 07:38 HPI: Andrei Acosta is a 60 year old male Presents for EGD. Patient has a long history of quadriplegia. Has complaints of difficulty swallowing. Also notices epigastric discomfort. His symptoms are very vague. But he feels somewhat uncomfortable in his abdomen. An EGD is performed today to evaluate more thoroughly. Patient denies any weight loss. He has a long history of irregular bowel habits. He does maintain a specific bowel regime with adequate results. Previous attempts at colonoscopy been limited. Patient refuses follow-up colonoscopy at this time. An EGD will be arranged today. Because of epigastric pain and dysphagia. 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 Renal disease Suprapubic catheter Tracheostomy in place Surgical History Surgical History History of cholecystectomy History of left nephrectomy History of skin graft History of spinal fusion C5-C6 Family History Family History Mother Hypertension Father Family history of diabetes mellitus in first degree relative, Onset Age: 85 Patient's father is Other Diabetes mellitus Social History Social History Smoking packs per day: 1 Smoking cigarettes per day: 20.0 Years smoked: 15 Smoking pack-years: 15.00 Smoking status: Former smoker Tobacco type: cigarettes Second hand tobacco smoke exposure: No Smoking end date: 06/14/00 Alcohol intake: former Substance use: never Substance use type: does not use Living arrangements: with family Gender identity (if verbalized by the patient): Male Spiritual care concerns: No Meds Home Medications and Allergies Home Medications Medication Instructions Recorded Confirmed Type potassium citrate 10 meq PO TID 06/13/19 06/27/21 History ascorbic acid (vitamin C) 500 mg 500 mg PO BID cap 10/30/19 06/27/21 History capsule ferrous sulfate 324 mg (65 mg 324 mg PO DAILY 10/30/19 06/27/21 History iron) tablet,delayed release sennosides 8.6 mg-docusate sodium 1 tab-cap PO DAILY 10/30/19 06/27/21 History 50 mg tablet bupropion HCl 150 mg 24 hr tablet, 150 mg PO QAM 04/19/21 06/27/21 History extended release cod liver oil 1 cap PO DAILY 04/19/21 06/27/21 History donepezil 5 mg tablet 10 mg PO DAILY tablet 04/19/21 06/27/21 History gabapentin 300 mg capsule 300 mg PO BID cap 04/19/21
[2021-07-11 07:42] VITALS: BP 116/66; PULSE 61; RESP 24; O2SAT 100
[2021-07-11 07:52] VITALS: BP 80/51; PULSE 59; RESP 23; O2SAT 100
[2021-07-11 08:02] VITALS: BP 113/72; PULSE 56; RESP 19; O2SAT 99
== END 2021-07-11 08:33 | disposition home or self-care (01) ==
PROVIDERS: PCP Internal Medicine; Visit Provider Internal Medicine Gastroenterology
PROC: 0DJ08ZZ Inspection of Upper Intestinal Tract, Via Natural or Artificial Opening Endoscopic (ICD-10-PCS; CPT 43235; principal; 2021-07-11 07:30)
DX: R13.19 Other dysphagia (principal); R10.84 Generalized abdominal pain; K31.7 Polyp of stomach and duodenum; G82.54 Quadriplegia, C5-C7 incomplete; F41.8 Other specified anxiety disorders; M19.90 Unspecified osteoarthritis, unspecified site; Z86.718 Personal history of other venous thrombosis and embolism; R10.13 Epigastric pain; K21.9 Gastro-esophageal reflux disease without esophagitis; G62.9 Polyneuropathy, unspecified; I73.9 Peripheral vascular disease, unspecified; N28.9 Disorder of kidney and ureter, unspecified; Z87.891 Personal history of nicotine dependence
CPT/HCPCS: 43251; 88305; J2704; J7120

== ENCOUNTER 2021-09-21 07:40 | Outpatient (RCR) | payer MEDICARE, SELFPAY | END 2021-12-20 23:59 | disposition home or self-care (01) | LOC: ANHWOC 07:40 | PROVIDERS: PCP Internal Medicine; Visit Provider Internal Medicine | DX: L89.319 Pressure ulcer of right buttock, unspecified stage (principal); L89.320 Pressure ulcer of left buttock, unstageable | CPT/HCPCS: 99212; G0463 ==

== ENCOUNTER 2021-12-15 17:08 | Outpatient (CLI) | payer MEDICARE, SELFPAY ==
--- NOTE | ~2021-12-15 | XR_ITS ---
XR lumbar spine 2-3V DATE: 12/15/2021 18:10 INDICATION: Back pain. Paraplegia. TECHNIQUE: AP, lateral, coned lateral lumbosacral views. COMPARISON: 02/04/2019 CT abdomen pelvis FINDINGS: There is absence of the lower portion of the sacrum and coccyx apparently due to the very l arge decubitus ulcer, outlined by air on the lateral view. There is dextroscoliosis of the thoracolumbar spine. There is diffuse idiopathic skeletal hyperostosis of the thoracolumbar spine. There is moderately sev ere degenerative disc disease at L4-5 and L5-S1. The sacroiliac joints appear intact. All seen the IMPRESSION: Thoracolumbar dextro scoliosis Extensive degenerative changes of the thoracic and lumbar spine Absence the lower sacrum and coccyx and large adjacent decubitus ulcer Reviewed, dictated and finalized at location A.
--- NOTE | ~2021-12-15 | XR_ITS ---
XR abdomen/kub 1V DATE: 12/15/2021 18:09 INDICATION: Renal stone. Back pain. TECHNIQUE: 3 AP views COMPARISON: 02/04/2019 CT abdomen pelvis FINDINGS: Severe chronic bilateral hip deformity. Dextroscoliosis and degenerative change of the thoracolumbar spine. Absence of the lower portion of the sacrum. There is very prominent amount fecal material in the colon consistent with constipation. No bowel obs truction or intraperitoneal free air is evident. Some calcifications are noted overlying the right kidney, consistent with right nephrolithiasis. Left kidney is absent on 02/04/2019 CT abdomen pelvis examination. IMPRESSION: Irregular colon consistent with constipation Right nephrolithiasis Reviewed, dictated and finalized at Location A. Reviewed, dictated and finalized at location A.
--- NOTE | ~2021-12-15 | XR_ITS ---
XR hip LT min 2V DATE: 12/15/2021 18:10 INDICATION: Pain TECHNIQUE: 3 views COMPARISON: None FINDINGS: There is very prominent chronic deformity of the left acetabulum is prominently widened, an d flattening deformity of the left femoral head, with superolateral dislocation of the left hip joint . Absence of the lower sacrum and coccyx. IMPRESSION: Severe chronic deformity and dislocation of the left hip joint Reviewed, dictated and finalized at location A.
--- NOTE | ~2021-12-15 | XR_ITS ---
XR chest 2V DATE: 12/15/2021 18:09 INDICATION: Dysphagia. Back pain. Renal stone. TECHNIQUE: AP and lateral views COMPARISON: 09/19/2019 portable AP chest 02/04/2019 CT abdomen pelvis FINDINGS: The examination is limited; the AP view excludes the lateral aspect of the lower right lung and chest. There is chronic mild pleural thickening and chronic calcifications in the lower left lung and pleura . Right diaphragmatic pleural calcification. No pulmonary infiltrate or consolidation is detected otherwise, but the lateral right lower lung is e xcluded on the AP view is dimension. Dextro scoliosis and degenerative spurring of the thoracic spine. Cardiomegaly. Aortic arch calcification. IMPRESSION: Chronic pulmonary and pleural calcifications in the left lower chest and bilateral pleura l calcifications. Prior exposure to asbestos is suggested. Cardiomegaly Aortic atherosclerosis Reviewed, dictated and finalized at location A. IMPRESSION: Chronic pulmonary and pleural calcifications in the left lower ches t and bilateral pleural calcifications. Prior exposure to asbestos is suggested . Cardiomegaly Aortic atherosclerosis
== END 2021-12-15 17:09 | disposition home or self-care (01) ==
PROVIDERS: PCP Internal Medicine; Visit Provider Nurse Practitioner Adult Health
DX: N20.0 Calculus of kidney (principal); M51.34 Other intervertebral disc degeneration, thoracic region; M51.36 Other intervertebral disc degeneration, lumbar region; I51.7 Cardiomegaly; I70.0 Atherosclerosis of aorta
CPT/HCPCS: 71046; 72100; 73502; 74018

== ENCOUNTER 2022-01-04 11:21 | Outpatient (CLI) | payer MEDICARE, SELFPAY ==
[2022-01-04 11:58] LABS: Basophils Percent Auto 0.4 % (0.2-1.2); Eosinophils Absolute Auto 0.1 K/mm3 (0-0.3); Eosinophils Percent Auto 1.5 % (0-4.4); Hematocrit 38.2 % (42.0-52.0); Hemoglobin 10.8 g/dL (14.0-18.0); Immature Granulocyte Absolute 0.08 K/mm3 (0.00-0.031); Immature Granulocyte Percent A 1.2 % (0-0.5); Lymphocytes Absolute Auto 0.67 K/mm3 (0.9-3.2); Mean Corpuscular HGB Conc 28.3 g/dl (32-36); Mean Corpuscular Hemoglobin 23.6 pg (26-34); Mean Corpuscular Volume 83.6 fl (80-100); Mean Platelet Volume 8.4 fl (7.4-10.4); Monocytes Absolute Auto 0.6 K/mm3 (0.1-0.6); Monocytes Percent Auto 8.5 % (2.6-8.5); Neutrophils Absolute Auto 5.2 K/mm3 (1.3-6.7); Neutrophils Percent Auto 78.4 % (45.5-73.1); Platelet Count Result 160 k/mm3 (150-375); Red Blood Count 4.57 M/mm3 (4.6-6.20); Red Cell Distribution Width 16.2 % (11.5-14.5); White Blood Count 6.7 K/mm3 (4.5-10.0)
[2022-01-04 12:19] LABS: Anion Gap 6 mmol/L (8-16); Blood Urea Nitrogen 18 mg/dL (9-20); Carbon Dioxide 27 mmol/L (22-30); Chloride 108 mmol/L (98-107); Estimated Glomerular Filt Rate > 60; Glucose 114 mg/dL (65-110); Potassium 4.3 mmol/L (3.4-5.0); Sodium 141 mmol/L (137-145)
[2022-01-04 12:23] LABS: Iron 28 ug/dL (49-181)
[2022-01-04 12:25] LABS: Hypochromasia 1+ (NORMAL); Platelet Estimate Adequate (Adequate)
[2022-01-04 12:33] LABS: Percent Iron Saturation 13 % (20-50)
== END 2022-01-04 11:22 | disposition home or self-care (01) ==
LOC: ANHLAB 11:22
PROVIDERS: PCP Internal Medicine; Visit Provider Internal Medicine Hematology & Oncology
DX: D64.9 Anemia, unspecified (principal)
CPT/HCPCS: 36415; 80048; 82607; 82728; 83540; 83550; 85025

== ENCOUNTER 2022-01-26 10:12 | Outpatient (RCR) | payer MEDICARE, SELFPAY ==
--- NOTE | 2022-01-26 11:33 | REHOPWC ---
SEATING EVALUATION NOTIFICATION This is to notify provider that Andrei Acosta participated in a power mobility device evaluation today. Recommendations were made specific to patient's needs. Seating Assessment documentation has been completed for detailed information on required equipment. The mobility device provider for this case is Marcos Marino. Please note that no further care plan will be developed on this account. Thank you for referring this patient to [facility]. Please review, sign, date and return this discharge summary BRIONNA. I have been updated about the patient's current status and I agree with discharge from the above service at this time. Referring Physician Date
== END 2022-01-26 14:39 | disposition home or self-care (01) ==
LOC: ANHPT 10:12
PROVIDERS: PCP Internal Medicine; Visit Provider Internal Medicine
DX: G82.54 Quadriplegia, C5-C7 incomplete (principal)
CPT/HCPCS: 97163

== ENCOUNTER 2022-02-08 07:39 | Outpatient (RCR) | payer MEDICARE, SELFPAY ==
--- NOTE | 2022-02-01 08:04 | PCWOUND ---
WOCN NOTE patient did not show up for his appointment, no call was made to cancel or reschedule.
== END 2022-04-24 12:47 | disposition home or self-care (01) ==
LOC: ANHWOC 07:39
PROVIDERS: PCP Internal Medicine; Visit Provider Internal Medicine
DX: L89.329 Pressure ulcer of left buttock, unspecified stage (principal); L89.319 Pressure ulcer of right buttock, unspecified stage
CPT/HCPCS: 99212; G0463

== ENCOUNTER 2022-04-22 13:00 | Inpatient (IN) | payer MEDICARE, SELFPAY ==
[2022-04-22] VITALS (43 sets, daily range): BP systolic 66–173; BP diastolic 33–140; PULSE 39–68; RESP 12–31; TEMP 36–36.4; O2SAT 55–100; BMI 27.8
--- NOTE | ~2022-04-22 | XR_ITS ---
EXAMINATION: XR abdomen obstructive series DATE: 04/27/2022 11:11 INDICATION: Abdominal distention TECHNIQUE: Frontal supine and upright views of the abdomen were obtained. COMPARISON: CT dated 04/22/2022 FINDINGS: Moderate amount of gas and stool scattered throughout the colon and small amount of gas within a few loops of nondilated small bowel in the right abdomen. No dilated loops of bowel to suggest obstructio n. No free intraperitoneal gas. Splenomegaly with splenic shadow measuring 18.1 cm craniocaudal lengt h. Opacities in the bilateral lower lung zones. Small bilateral pleural effusions. Calcified pleural plaque along the right lung base. Cardiomediastinal silhouette is within normal limits for AP techniq ue. Anterior spinal fusion and ankylosis across the spinous processes throughout the thoracic spine w hich could be related to either ankylosing spondylitis or diffuse idiopathic skeletal hyperostosis (D BRITTNEY). IMPRESSION: 1. No free intraperitoneal gas or dilated gas-filled loops of bowel to suggest obstruction. 2. Splenomegaly. 3. Bilateral lung disease which could represent pulmonary edema, pneumonia, atelectasis or some combi nation thereof. Reviewed, dictated and finalized at location A. IMPRESSION: 1. No free intraperitoneal gas or dilated gas-filled loops of bowel to suggest obstruction. 2. Splenomegaly. 3. Bilateral lung disease which could represent pulmonary edema, pneumonia, ate lectasis or some combination thereof.
--- NOTE | ~2022-04-22 | XR_ITS ---
EXAMINATION: XR chest 1V portable DATE: 04/24/2022 05:45 INDICATION: Bilateral pulmonary infiltrates TECHNIQUE: frontal view of the chest was obtained. COMPARISON: Chest radiograph dated 04/23/2022 FINDINGS: Increasing patchy airspace opacities throughout the right lung. Additional airspace opacities in the left lower lung zone. Blunting at the costophrenic angles consistent with small bilateral pleural eff usions. Heart size is normal. Left upper extremity peripherally inserted central venous catheter (PIC C) tip at the cephalad superior vena cava. There are bridging osteophytes at multiple levels in the spine, consistent with diffuse idiopathic skeletal hyperostosis (DISH). IMPRESSION: 1. Worsening diffuse lung disease throughout the right lung and no significant change in opacities in the left lower lung zone with differential including asymmetric pulmonary edema and/or pneumonia. 2. Small bilateral pleural effusions. Reviewed, dictated and finalized at location A. IMPRESSION: 1. Worsening diffuse lung disease throughout the right lung and no significant change in opacities in the left lower lung zone with differential including asy mmetric pulmonary edema and/or pneumonia. 2. Small bilateral pleural effusions.
--- NOTE | ~2022-04-22 | XR_ITS ---
EXAMINATION: XR chest PICC line DATE: 04/23/2022 14:03 INDICATION: PICC line placement TECHNIQUE: Portable AP supine view of the chest was obtained for assessment of PICC line positioning. COMPARISON: Chest radiograph dated 04/23/2022 FINDINGS: The lower lung zones are excluded from the [id number]. Interval placement of a left upper extremit y peripherally inserted central venous catheter (PICC) tip at the cephalad superior vena cava. Persi stent airspace opacities about the visualized bilateral lungs relatively sparing the apices. No pneum othorax. Cerclage wires project over the posterior elements of the lower cervical spine. IMPRESSION: 1. Left upper extremity PICC line tip at the cephalad superior vena cava. 2. Incompletely visualized diffuse bilateral lung disease which could represent pulmonary edema or pn eumonia. Reviewed, dictated and finalized at location A. IMPRESSION: 1. Left upper extremity PICC line tip at the cephalad superior vena cava. 2. Incompletely visualized diffuse bilateral lung disease which could represent pulmonary edema or pneumonia.
--- NOTE | ~2022-04-22 | XR_ITS ---
EXAMINATION: XR chest 1V Exam Date/Time: 04/22/2022 14:38 CDT HISTORY: AMS, COUGH, FLAILING IN BED Comparison: 12/15/2021. RESULT: Lines, tubes, and devices: None. Lungs and pleura: Increased left perihilar and bilateral lower lung opacities. Moderate left costoph renic angle blunting. Right basilar scar. Cardiomediastinal silhouette: Stable. Other: No acute osseous or upper abdominal finding. IMPRESSION: Pulmonary opacities, may reflect edema and/or the consolidation of pneumonia. Moderate left pleural e ffusion. Reviewed, dictated and finalized at location K. IMPRESSION: Pulmonary opacities, may reflect edema and/or the consolidation of pneumonia. M oderate left pleural effusion.
--- NOTE | ~2022-04-22 | XR_ITS ---
EXAMINATION: XR chest 1V portable DATE: 04/26/2022 05:10 INDICATION: Respiratory failure TECHNIQUE: frontal view of the chest was obtained. COMPARISON: Chest radiograph dated 04/25/2022 FINDINGS: No significant change in patchy airspace opacities throughout the right lung relatively sparing the a pex and in the left mid to lower lung zone. Small bilateral pleural effusions. No pneumothorax. Heart size is normal. Left upper extremity peripherally inserted central venous catheter (PICC) tip at th e mid superior vena cava. IMPRESSION: 1. No significant change in bilateral lung disease which could represent asymmetric pulmonary edema a nd/or pneumonia. 2. Small bilateral pleural effusions. Reviewed, dictated and finalized at location A. IMPRESSION: 1. No significant change in bilateral lung disease which could represent asymme tric pulmonary edema and/or pneumonia. 2. Small bilateral pleural effusions.
--- NOTE | ~2022-04-22 | US_ITS ---
EXAMINATION: US venous doppler [facility] DATE: 04/23/2022 08:42 INDICATION: Bilateral lower limb swelling. Immobility. TECHNIQUE: Grayscale ultrasound images without and with compression and Doppler ultrasound images of the bilateral lower extremity veins were obtained. COMPARISON: None. FINDINGS: The visualized portions of right common femoral vein, profunda (deep) femoral vein, femoral vein, pop liteal vein, posterior tibial veins, peroneal veins and greater saphenous vein outflow are patent. Lucas bcutaneous edema at the right calf. The visualized portions of left common femoral vein, profunda femoral vein, femoral vein, popliteal v ein, posterior tibial veins, peroneal veins and greater saphenous vein outflow are patent. Subcutaneo us edema at the left calf. IMPRESSION: 1. No deep venous thrombosis in either lower limb. Reviewed, dictated and finalized at location A.
--- NOTE | ~2022-04-22 | CT_ITS ---
EXAMINATION: CT brain wo con DATE: 04/22/2022 14:37 INDICATION: Confusion . TECHNIQUE: Computed tomography (CT) of the head was performed without intravenous contrast. The mA wa s adjusted according to patient size. Iterative reconstruction technique was employed. The dose-lengt h product was 1059.33 mGy-cm. COMPARISON: 03/27/2013 FINDINGS: Motion limited examination. No acute intracranial hemorrhage or extra-axial fluid collection. No hydrocephalus, mass, or herniation. No acute ischemic infarct. Unremarkable dural venous sinus attenuation. No acute osseous abnormality. Right frontal and anterior ethmoid mucosal thickening, remaining aerated spaces are clear. IMPRESSION: Motion limited examination. Within that constraint, no acute intracranial process detected. Reviewed, dictated and finalized at location K. IMPRESSION: Motion limited examination. Within that constraint, no acute intracranial proce ss detected.
--- NOTE | ~2022-04-22 | XR_ITS ---
EXAM: XR foot LT min 3V, XR foot RT min 3V DATE: 04/22/2022 17:39 HISTORY: Osteomyelitis . COMPARISON: None available. FINDINGS: Severely decreased mineralization. Focal erosion in the distal aspect of the left first di stal phalanx. Partial bilateral calcaneal resections. Large cutaneous defect over the bilateral heels , with subjacent sclerosis of the residual calcaneus bones bilaterally and possible exposure of bone in the right heel. Erosive arthropathy in the bilateral fifth MTP joints. Severe soft tissue swelling /edema in the bilateral legs and feet. IMPRESSION: Possible focus of acute osteomyelitis in the left distal phalanx. Large bilateral cutaneo us defects over the heels, with possible exposure of bone on the right. Early acute and/or chronic os teomyelitis of the bilateral calcaneus bones cannot be excluded. Reviewed, dictated and finalized at location K. IMPRESSION: Possible focus of acute osteomyelitis in the left distal phalanx. L arge bilateral cutaneous defects over the heels, with possible exposure of bone on the right. Early acute and/or chronic osteomyelitis of the bilateral calcan eus bones cannot be excluded.
--- NOTE | ~2022-04-22 | XR_ITS ---
EXAMINATION: XR chest 1V portable DATE: 04/27/2022 06:09 INDICATION: Respiratory failure TECHNIQUE: frontal view of the chest was obtained. COMPARISON: Chest radiograph dated 04/26/2022 FINDINGS: No significant change in patchy airspace opacities throughout the right lung and in the left mid to l ower lung zones. Small bilateral pleural effusions. No pneumothorax. Heart size is normal. Left upper extremity peripherally inserted central venous catheter (PICC) tip at the caudal superior vena cava . IMPRESSION: 1. No significant change in bilateral lung disease which could represent or pneumonia or asymmetric p ulmonary edema. Reviewed, dictated and finalized at location A. IMPRESSION: 1. No significant change in bilateral lung disease which could represent or pne umonia or asymmetric pulmonary edema.
--- NOTE | ~2022-04-22 | XR_ITS ---
EXAMINATION: XR chest 1V portable DATE: 04/23/2022 06:05 INDICATION: Hypoxia TECHNIQUE: frontal view of the chest was obtained. COMPARISON: Chest radiograph dated 04/22/2022 FINDINGS: Increasing opacities in the bilateral mid and lower lung zones with perihilar predominance on the rig ht and basilar predominance on the left. There is a small left pleural effusion. No definitive right pleural effusion although the right costophrenic angle is excluded from the [id number]. No pneumot horax. The heart size is within normal limits for AP technique. IMPRESSION: 1. Increasing opacities in bilateral mid and lower lung zones which could represent pulmonary edema, pneumonia or combination thereof. 2. Small left pleural effusion. Reviewed, dictated and finalized at location A. IMPRESSION: 1. Increasing opacities in bilateral mid and lower lung zones which could repre sent pulmonary edema, pneumonia or combination thereof. 2. Small left pleural effusion.
--- NOTE | ~2022-04-22 | XR_ITS ---
EXAMINATION: XR chest 1V portable DATE: 04/25/2022 05:38 INDICATION: Respiratory failure TECHNIQUE: frontal view of the chest was obtained. COMPARISON: Chest radiograph dated 04/24/2022 FINDINGS: Persistent patchy airspace opacities throughout the right lung relatively sparing the apex. Relativel y mild opacities in the left mid and lower lung zone. Small bilateral pleural effusions. No pneumotho rax. Heart size is normal. Left upper extremity peripherally inserted central venous catheter (PICC) tip at the superior vena cava. Additional peripheral intravenous catheter at the right upper arm. IMPRESSION: 1. No significant change in diffuse lung disease throughout the right lung artifact and given the asy mmetry would favor pneumonia over pulmonary edema. 2. Mild more streaky opacity left mid and lower lung zone and would favor atelectasis over pulmonary edema or pneumonia. 3. Small bilateral pleural effusions. Reviewed, dictated and finalized at location A. IMPRESSION: 1. No significant change in diffuse lung disease throughout the right lung azeb fact and given the asymmetry would favor pneumonia over pulmonary edema. 2. Mild more streaky opacity left mid and lower lung zone and would favor atele ctasis over pulmonary edema or pneumonia. 3. Small bilateral pleural effusions.
--- NOTE | ~2022-04-22 | CT_ITS ---
EXAMINATION: CT abdomen pelvis w con DATE: 04/22/2022 19:01 INDICATION: Sepsis of unknown etiology TECHNIQUE: Computed tomography (CT) of the abdomen and pelvis was performed with 100 mL Omnipaque-350 intravenous contrast. Automated exposure control and iterative reconstruction technique were employe d. The dose-length product was 1288.79 mGy-cm. COMPARISON: 02/04/2019. FINDINGS: Exam limited by arm positioning and bowel motion. Lower thorax: Peripheral parenchymal calcification in the bilateral lower lungs. Small volume loculat ed appearing effusions, with pleural enhancement. Liver: Heterogeneous enhancement. Hepatomegaly. Biliary/Gallbladder: Gallbladder is absent. No bile duct dilation. Pancreas: Fatty infiltration. Spleen: Marked enlargement. Splenic cyst versus hemangioma. Adrenals:No mass. Kidneys: Status post left nephrectomy. Nonobstructive right calculi. Right-sided perinephric strandin g, atrophy, and cortical thinning. Right inferior pole hypodensity, too small to characterize. GI tract: The rectum is mildly dilated up to 6.7 cm, by partially formed stool. No small or other lar ge bowel dilation. Appendix not visualized. Mesentery/Peritoneum: No ascites, mass, or free air. Retroperitoneum: No mass. Pelvis: Suprapubic urinary catheter with chronic wall thickening and inflammation. Soft Tissues: Large perineal soft tissue defect, with skin thickening, extending to bone at the pubic symphysis, bilateral ischial tuberosities, and sacrum, not significantly changed. Bones: Status post partial sacral resection. Likely prior femoral head and neck resection. Chronic l arge left hip joint effusion. IMPRESSION: Limited exam. Small volume loculated appearing pleural fluid collections with inflammatory change, li elijah representing exudate. Hepatosplenomegaly. Possible mild fecal impaction. Chronic cystitis. Large perineal soft tissue defect extending to bone, extensive chronic osseous change and a large chronic left hip effusion. Early acute/chronic osteomyelitis and/or left hip septic arthritis are not exclude d. Reviewed, dictated and finalized at location K. IMPRESSION: Limited exam. Small volume loculated appearing pleural fluid collections with i nflammatory change, likely representing exudate. Hepatosplenomegaly. Possible m ild fecal impaction. Chronic cystitis. Large perineal soft tissue defect extend ing to bone, extensive chronic osseous change and a large chronic left hip effu amanda. Early acute/chronic osteomyelitis and/or left hip septic arthritis are no t excluded.
--- NOTE | 2022-04-22 13:24 | ECG_ITS ---
Measurements Intervals [place] Rate: 71 P: NV: 0 QRS: 5 QRSD: 98 T: 38 QT: 401 QTc: 436 Interpretive Statements SINUS RHYTHM WITH 2ND DEGREE AV BLOCK, MOBITZ TYPE II WITH 2:1 AV BLOCK ABNORMAL ECG MODERATE ST DEPRESSION [0.05+ mV ST DEPRESSION] NO PREVIOUS ECG AVAILABLE FOR COMPARISON Electronically Signed On 04-22-2022 15:35:40 CDT by Miguelito Etienne M.D.
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
[2022-04-22 14:00] LABS: Add Urine Microscopic? YES; Amorphous Sediment Urine Moderate; Appearance Urine Turbid (Clear); Bacteria Urine Trace /hpf; Bilirubin Urine Negative (Negative); Blood Urine Negative (Negative); Color Urine Yellow (Yellow); Glucose Urine UA Negative (Negative); Ketones Urine Negative (Negative); Leukocyte Esterase Ur Trace LEU/UL (Negative); Nitrate Urine Positive (Negative); Protein Urine 2+ mg/dL (Negative); Specific Grav Ur 1.012 (1.001-1.035); Squamous Epithelial Cell Urine Occasional /hpf (Few); Urobilinogen Urine Negative mg/dL (<2.0)
[2022-04-22] MEDS: SODIUM CHLORIDE 0.9% IV 1,000 ML 999 ML IV CONT ×3 (14:08→18:14)
--- NOTE | 2022-04-22 14:08 | PCRCNOTE ---
Arrived to draw ABG but was unable to draw at this time due to nursing trying to get an IV line in. Waited for 20 minutes but still unable to get to the Pt.; Dr. Harvey aware and states he will call when able to draw the ABG.
[2022-04-22 14:15] LABS: Glucose Point of Care 83 mg/dl (65-105)
[2022-04-22 14:40] LABS: Influenza A QL RT-PCR Negative (Negative); Influenza B QL RT-PCR Negative (Negative); SARS-CoV-2 RNA PCR Negative
--- NOTE | 2022-04-22 15:01 | ECG_ITS ---
Measurements Intervals [place] Rate: 43 P: CT: 0 QRS: 39 QRSD: 100 T: 39 QT: 502 QTc: 427 Interpretive Statements PROBABLE JUNCTIONAL ESCAPE RHYTHM LOW QRS VOLTAGE IN PRECORDIAL LEADS ABNORMAL ECG COMPARED TO ECG 04/22/2022 13:35:23 HEART RATE HAS DECREASED PROBABLE JUNCTIONAL RHYTHM HAS REPLACED SINUS RHYTHM WITH SECOND-DEGREE AV BLOCK Electronically Signed On 04-22-2022 15:44:32 CDT by Miguelito Etienne M.D.
[2022-04-22] MEDS: ATROPINE SULFATE 0.4 MG/ML VIAL IV PUSH (15:44)
[2022-04-22 16:48] LABS: Basophils Percent Auto 0.1 % (0.2-1.2); Eosinophils Percent Auto 0.1 % (0-4.4); Immature Granulocyte Percent A 4.2 % (0-0.5); Lymphocytes Absolute Auto 0.74 K/mm3 (0.9-3.2); Lymphocytes Percent Auto 5.2 % (18.3-44.2); Mean Corpuscular HGB Conc 27.2 g/dl (32-36); Mean Corpuscular Hemoglobin 22.9 pg (26-34); Mean Corpuscular Volume 84.2 fl (80-100); Mean Platelet Volume 8.8 fl (7.4-10.4); Monocytes Absolute Auto 0.7 K/mm3 (0.1-0.6); Monocytes Percent Auto 4.9 % (2.6-8.5); Neutrophils Absolute Auto 12.2 K/mm3 (1.3-6.7); Neutrophils Percent Auto 85.5 % (45.5-73.1); Platelet Count Result 234 k/mm3 (150-375); Red Cell Distribution Width 18.2 % (11.5-14.5); White Blood Count 14.2 K/mm3 (4.5-10.0)
[2022-04-22 16:57] LABS: Lactic Acid Reflex 3.2 mmol/L (0.7-2.0)
[2022-04-22 17:03] LABS: Alanine Aminotransferase 13 U/L (6-50); Albumin Level 2.2 g/dL (3.5-5.1); Alkaline Phosphatase 100 U/L (38-126); Anion Gap 9 mmol/L (8-16); Aspartate Amino Transferase 28 U/L (17-59); Bilirubin,Total 0.6 mg/dL (0.2-1.3); Blood Urea Nitrogen 24 mg/dL (9-20); Calcium 8.4 mg/dL (8.4-10.2); Carbon Dioxide 23 mmol/L (22-30); Chloride 101 mmol/L (98-107); Estimated CRCL calculation 51 ml/min; Estimated Glomerular Filt Rate > 60; Glucose 108 mg/dL (65-110); Potassium 5.2 mmol/L (3.4-5.0); Sodium 133 mmol/L (137-145)
[2022-04-22 17:04] LABS: INR 1.4; Prothrombin Time 17.1 Seconds (11.1-14.7)
[2022-04-22 17:05] LABS: Partial Thromboplastin Time 48.7 SECONDS (22.3-36.8)
[2022-04-22 17:18] LABS: CRP 19.6 mg/dL (<1.0); Troponin I 0.161 ng/mL (0.000-0.034)
[2022-04-22 17:19] LABS: Hemoglobin 5.5 g/dL (14.0-18.0)
[2022-04-22 17:20] LABS: Hematocrit 20.2 % (42.0-52.0)
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
[2022-04-22] MEDS: NOREPINEPHRINE 8 MG/D5W 250 ML 8 MG/250 ML BAG 9.38 MG IV CONT (19:32)
[2022-04-22 19:45] LABS: Reflex Lactic Acid Yes or No Add Lactic
--- NOTE | 2022-04-22 19:51 | PC.NURSE ---
This patient, Andrei Acosta, was admitted to Intensive Care Unit-2. Patient/family oriented to hospital policies and general routines including ID bracelet, bed and alarms, visiting hours, pain management, procedures, bathroom and other care routines, personal items, smoking policy, room service/diet, and visiting hours. Information on how to activate the Rapid Response Team has been discussed. Patient/Family are encouraged to report perceived risks to care and to ask questions if they do not understand what they are told or what they should do.
[2022-04-22 22:00] LABS: Prealbumin 3.2 mg/dL (17.6-36.0)
[2022-04-22] MEDS: SODIUM CHLORIDE 0.9% IV 250 ML 30 ML IV CONT (22:15)
[2022-04-22 22:17] LABS: Ammonia 19 umol/L (9-30)
[2022-04-22 22:29] LABS: Troponin I 0.147 ng/mL (0.000-0.034)
[2022-04-22 22:38] LABS: Anion Gap 9 mmol/L (8-16); Blood Urea Nitrogen 24 mg/dL (9-20); Calcium 8.2 mg/dL (8.4-10.2); Carbon Dioxide 20 mmol/L (22-30); Chloride 103 mmol/L (98-107); Estimated CRCL calculation 48 ml/min; Estimated Glomerular Filt Rate 56; Glucose 134 mg/dL (65-110); Magnesium 1.7 mg/dL (1.6-2.3); Sodium 132 mmol/L (137-145)
[2022-04-23] VITALS (29 sets, daily range): BP systolic 85–142; BP diastolic 42–70; PULSE 36–72; RESP 12–39; TEMP 36.1–36.3; O2SAT 85–100
[2022-04-23 00:28] LABS: Amphetamine Screen Urine Negative (Negative); Barbiturate Screen Urine Negative (Negative); Benzodiazepines Screen Urine Positive (Negative); Cannabinoid Screen Urine Negative (Negative); Cocaine Screen Urine Negative (Negative); Methadone Screen Urine Negative (Negative); Opiate Screen Urine Negative (Negative); Phencyclidine Screen Urine Negative (Negative)
[2022-04-23] MEDS: SODIUM CHLORIDE 0.9% IV 1,000 ML 80 ML IV CONT (00:49)
[2022-04-23] MEDS: DOPamine 400 MG/D5W 250 ML 400 MG/250 ML BAG 6.98 MG IV CONT (03:29)
[2022-04-23 04:55] LABS: Basophils Absolute Auto 0.1 K/mm3 (0.0-0.1); Basophils Percent Auto 0.3 % (0.2-1.2); Hematocrit 29.1 % (42.0-52.0); Hemoglobin 8.4 g/dL (14.0-18.0); Immature Granulocyte Absolute 0.45 K/mm3 (0.00-0.031); Lymphocytes Absolute Auto 0.49 K/mm3 (0.9-3.2); Lymphocytes Percent Auto 3.2 % (18.3-44.2); Mean Corpuscular HGB Conc 28.9 g/dl (32-36); Mean Corpuscular Hemoglobin 24.1 pg (26-34); Mean Corpuscular Volume 83.4 fl (80-100); Mean Platelet Volume 8.6 fl (7.4-10.4); Monocytes Absolute Auto 0.4 K/mm3 (0.1-0.6); Monocytes Percent Auto 2.6 % (2.6-8.5); Neutrophils Absolute Auto 13.7 K/mm3 (1.3-6.7); Neutrophils Percent Auto 90.9 % (45.5-73.1); Platelet Count Result 241 k/mm3 (150-375); Red Blood Count 3.49 M/mm3 (4.6-6.20); Red Cell Distribution Width 17.6 % (11.5-14.5); White Blood Count 15.1 K/mm3 (4.5-10.0)
[2022-04-23 04:58] LABS: Alveolar/Arterial O2 Gradient 339.1 mmHg; Base Excess ABG -3.1 mEq/l (+/-2.0); Carboxyhemoglobin 0.1 % THb (0-2.0); Fractional Inspired Oxygen 60 %; HCO3 ABG 21.4 mEq/l (22.0-26.0); Methemoglobin ABG 0.3 %THb (0-1.5); Oxygen Content ABG 11.1 %vol (16.0-22.0); PCO2 ABG 35.9 mmHg (35.0-45.0); PO2 FiO2 Ratio Arterial Blood 0.82 %; Reduced Hemoglobin 17.8 %THb (0-5.0); Total Hemoglobin 9.6 g/dL (12.0-18.0); pH ABG 7.393 (7.350-7.450)
[2022-04-23 05:01] LABS: Oxygen Saturation ABG 84.9 % (95.0-100.0); PO2 ABG 49.2 mmHg (80.0-100.0)
[2022-04-23 05:04] LABS: Modified Allen's Test Pass; Oxyhemoglobin 81.8 % THb (90.0-100.0); Site Drawn LEFT FEMORAL
[2022-04-23 05:05] LABS: Device NON-REBREATHER MASK
[2022-04-23 05:05] LABS: Lactic Acid Reflex 1.2 mmol/L (0.7-2.0)
[2022-04-23 05:06] LABS: Alanine Aminotransferase 12 U/L (6-50); Albumin Level 2.2 g/dL (3.5-5.1); Alkaline Phosphatase 95 U/L (38-126); Anion Gap 11 mmol/L (8-16); Aspartate Amino Transferase 24 U/L (17-59); Bilirubin,Total 0.9 mg/dL (0.2-1.3); Blood Urea Nitrogen 26 mg/dL (9-20); Calcium 8.3 mg/dL (8.4-10.2); Carbon Dioxide 21 mmol/L (22-30); Chloride 102 mmol/L (98-107); Estimated CRCL calculation 73 ml/min; Estimated Glomerular Filt Rate > 60; Glucose 108 mg/dL (65-110); Potassium 4.6 mmol/L (3.4-5.0); Sodium 134 mmol/L (137-145)
[2022-04-23 05:28] LABS: Alveolar/Arterial O2 Gradient 623.2 mmHg; Base Excess ABG -2.5 mEq/l (+/-2.0); Fractional Inspired Oxygen 100 %; Oxygen Content ABG 11.6 %vol (16.0-22.0); PCO2 ABG 36.8 mmHg (35.0-45.0); PO2 FiO2 Ratio Arterial Blood 0.53 %; Total Hemoglobin 9.7 g/dL (12.0-18.0); pH ABG 7.395 (7.350-7.450)
[2022-04-23 05:31] LABS: Oxygen Saturation ABG 87.6 % (95.0-100.0)
[2022-04-23 05:32] LABS: Device NON-REBREATHER MASK; Modified Allen's Test Pass; Oxyhemoglobin 84.5 % THb (90.0-100.0); Site Drawn LEFT BRACHIAL
--- NOTE | 2022-04-23 06:00 | PM.EVENT ---
Event Note Event Note Event Note: Nursing staff notified me that the patient was having bradycardia. He had been off of pressors for a couple of hours but is heart rate was progressively dropping as low as 30. I gave orders to start dopamine to maintain heart rate between 40 and 50. Then later nursing staff notified me that they were unable to draw from the patient's femoral line. There also having difficulty infusing material through the patient's femoral line. Respiratory therapy was unable to obtain ABG on the patient despite multiple attempts. Patient was having evidence of hypoxia on the monitor and was increasingly more confused with repetitive questions. I went in to assist nursing staff was stabilizing the patient including drawn venous blood specimens and ABGs. ABGs were reviewed and demonstrated acute worsening of hypoxic respiratory failure. Patient was placed on a non-rebreather prior to ABG being drawn and hypoxia persisted. Stat chest x-ray was performed patient has significant increase infiltrates versus edema especially of the right lung. Patient will be placed on BiPAP settings 12/5. Patient has had some mildly decreased urine output from what I would expect but he has some leakage of urine from around his suprapubic catheter site. I did pull back the patient's right femoral CVC catheter 2 cm to 18. With repositioning 1 port of the patient's femoral catheter did draw all adequately. The remaining 2 ports would not draw all but still would flush sluggishly. The brown port flushed well. Acutely worsening acute hypoxic respiratory failure: BiPAP has been ordered respiratory therapy is working on placing the patient on BiPAP currently. I suspect the patient's symptoms are somewhat due to fluid overload given he received 3 L of fluid in the ER and 2 units of packed red blood cells. Since his blood pressures have improved at this time will attempt diuresis. 20 mg of IV Lasix has been ordered. Symptomatic bradycardia: Dopamine has been ordered to maintain heart rate between 40 and 50. Cardiology has been consulted. Echocardiogram is pending Limited vascular access: Central line was repositioned but still has sluggish flow in only 1 port is able to be drawn from. Will place consult for PICC line. Shock: Likely due to a combination of septic with possible component of cardiogenic shock. Echo is pending. Patient is on broad-spectrum antibiotics. Cultures are pending. 70 minute spent in critical care activities Due to a high probability of clinically significant, life threatening deterioration, the patient required my highest level of preparedness to intervene emergently and I personally spent this critical care time directly and personally managing the patient. This critical care time included obtaining a history; examining the patient; pulse oximetry; ordering and review of studies; arranging urgent treatment with development of a management plan; evaluation of patient's response to treatment; frequent reassessment; and discussions with other providers. It was exclusive of separately billable procedures and treating other patients and teaching time. Please see Assessment and Plan section and the rest of the note for further information on patient assessment and treatment.
[2022-04-23 06:04] LABS: Platelet Estimate Adequate (Adequate); Poikilocytosis 1+ (NORMAL)
[2022-04-23 06:05] LABS: Crenated RBC 1+ (NORMAL)
[2022-04-23 06:06] LABS: Anisocytosis 1+ (NORMAL); Schistocytes None Seen (NORMAL)
[2022-04-23] MEDS: FUROSEMIDE INJ 40 MG/4 ML VIAL 20 MG IV PUSH (06:40)
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
[2022-04-23 08:22] LABS: IFOB Positive Control Positive; Immunochemical Fecal Occult Bl Positive (N)
[2022-04-23] MEDS: PANTOPRAZOLE SODIUM IV 40 MG VIAL IV PUSH ×2 (08:39→22:19)
--- NOTE | 2022-04-23 09:06 | PM.IMPN ---
Progress Note: A&P Assessment and Plan (1) Septic shock: Code(s): A41.9 - Sepsis, unspecified organism; R65.21 - Severe sepsis with septic shock Status: Acute Assessment and Plan: Appreciate critical care consultation, patient remains in the ICU, stable off vasopressors for now, with broad-spectrum antibiotics likely secondary to sepsis from osteomyelitis/multiple pressure wounds, however, patient also has a pleural effusion that could potentially be a source of infection Blood, wound and urine cultures all pending (2) Pressure ulcers of skin of multiple topographic sites: Code(s): L89.90 - Pressure ulcer of unspecified site, unspecified stage Status: Acute Assessment and Plan: Large pressure ulcer in the sacral region extending to the perineum was contaminated with fecal matter. Both heels have pressure ulcers that are likely infected though the left heel wound looks a bit worse. CT of the abdomen and pelvis surprisingly showed findings of a relatively stable pressure ulcer. Surgery has been consulted as he will likely need several debridements. (3) Osteomyelitis: Code(s): M86.9 - Osteomyelitis, unspecified Status: Acute Assessment and Plan: Continue broad-spectrum antibiotics per Critical Care consultation recommendations Appreciate general surgery consultation for possible debridement (4) Bradycardia: Code(s): R00.1 - Bradycardia, unspecified Status: Acute Assessment and Plan: Appreciate cardiology consultation, continue to monitor telemetry, follow-up ECGs (5) Elevated troponin: Code(s): R77.8 - Other specified abnormalities of plasma proteins Status: Acute Assessment and Plan: Appreciate cardiology consultation, follow-up echo Suspect elevated troponins are secondary to a type 2 HI from sepsis and severe anemia (6) Loculated pleural effusion: Code(s): J90 - Pleural effusion, not elsewhere classified Status: Acute Assessment and Plan: Continue antibiotics, monitor, loculated, will continue to monitor for possible empyema (7) GI bleed: Code(s): K92.2 - Gastrointestinal hemorrhage, unspecified Status: Acute Assessment and Plan: Fecal occult blood test was positive, GI is consulted, continue PPI (8) Acute on chronic anemia: Code(s): D64.9 - Anemia, unspecified Status: Acute Assessment and Plan: Secondary to GI bleed, monitor hemoglobin status post transfusion (9) Effusion of left hip: Code(s): M25.452 - Effusion, left hip Status: Acute Assessment and Plan: Chronic left hip joint effusion, do not suspect this is infected at this time but could always be a source, monitor (10) Protein calorie malnutrition: Code(s): E46 - Unspecified protein-calorie malnutrition Status: Acute Assessment and Plan: Appreciate dietitian consultation, will likely need supplements for best wound healing (11) Anxiety: Code(s): F41.9 - Anxiety disorder, unspecified Status: Acute Assessment and Plan: Likely secondary to the BiPAP mask, agree with intermittent high-flow nasal cannula for patient comfort, would also recommend low-dose Ativan every 6 hours, assuming mentation tolerates this (12) Hypoxia: Code(s): R09.02 - Hypoxemia Status: Acute Assessment and Plan: Respiratory failure likely secondary to the pleural effusion, concerning for infection, continue antibiotics and supportive care with BiPAP/high-flow, appreciate critical care management Plan DVT prophylaxis with SCDs GI prophylaxis with PPI Code status full code Subjective Date/time seen: 04/23/22 09:06 Interval history: Episode of bradycardia noted overnight, started on dopamine drip for this. Patient states he feels very uncomfortable with the BiPAP mask and keeps saying ?I can't breathe.? Review of Systems Review of Systems: Difficul
--- NOTE | 2022-04-23 09:22 | WPDCNINT ---
Assessment and Plan Assessment and plan (1) Septic shock: Code(s): A41.9 - Sepsis, unspecified organism; R65.21 - Severe sepsis with septic shock Status: Acute Assessment and Plan: Patient presented with altered mental status, was found to be hypo intensive in the ER bradycardic, feeds, leukocytosis, lactic acidosis. Patient was diagnosed with septic shock likely from urinary infection -patient received 3 L of IV fluid bolus, blood pressures were still refractory to fluids, patient was started initially on Levophed. -was found to be bradycardic in the ER, EKG showed junctional rhythm and a 2nd EKG showed junctional bigeminy -Levophed was switched to dopamine because of bradycardia in the ICU -maintain mean arterial pressures > 65 mmHg for adequate end organ perfusion -patient was given Levaquin 1 dose in the ED, and started on vancomycin and Zosyn (04/22) -blood and urine cultures have been obtained and pending -lactic acid has normalized (2) Hypoxia: Code(s): R09.02 - Hypoxemia Status: Acute Assessment and Plan: Patient was hypoxic with some respiratory distress, chest x-ray showed pulmonary edema likely related to IV fluids and blood transfusions -patient received Lasix with improvement in his respiratory status -placed on BiPAP and tolerating -will switch to high-flow therapy intermittently give him a break from BiPAP (3) Anemia: Code(s): D64.9 - Anemia, unspecified Status: Acute Assessment and Plan: Patient was found to be severely anemic with hemoglobin of 5.5 on admission. Pt had vlack stools -hemoccult was positive -received 2 units of packed RBCs -repeat hemoglobin was 8.4 -appreciate GI evaluation, recommended EGD -Continue Protonix IV Q12H (4) Acute GI bleeding: Code(s): K92.2 - Gastrointestinal hemorrhage, unspecified Status: Acute Assessment and Plan: As above (5) Protein calorie malnutrition: Code(s): E46 - Unspecified protein-calorie malnutrition Status: Acute Assessment and Plan: Pattern Clerk consulted Decrease Pre albumin Will require supplements (6) Quadriplegic spinal paralysis: Code(s): G82.50 - Quadriplegia, unspecified Status: Acute Assessment and Plan: chronic (7) Pressure ulcer of unspecified buttock, unspecified stage: Code(s): L89.309 - Pressure ulcer of unspecified buttock, unspecified stage Status: Acute Assessment and Plan: - Multiple decubitus ulcers -Surgery and wound care consulted 04/22: CT scan of the abdomen and pelvis showed small volume loculated pleural fluid, hepatic splenomegaly, possible mild fecal impaction, chronic cystitis, large perineal soft tissue defect extending to bone, early acute/chronic osteomyelitis and/or left hip septic arthritis not excluded. 04/22: X-ray of the bilateral feet showing Possible focus of acute osteomyelitis in the left distal phalanx. Large bilateral cutaneous defects over the heels, with possible exposure of bone on the right. Early acute and/or chronic osteomyelitis of the bilateral calcaneus bones cannot be excluded (8) Osteomyelitis: Code(s): M86.9 - Osteomyelitis, unspecified Status: Acute Assessment and Plan: CT as above Continue Vanc and Zosyn Plan DVT prophylaxis: No chemoprophylaxis as severe anemia, and GI bleed Stress ulcer prophylaxis: PPI IV Q12H Nutrition:NPO for now Code Status:Full Code Critical Care Time Spent: 47 minutes Due to a high probability of clinically significant, life threatening deterioration, the patient required my highest level of preparedness to intervene emergently and I personally spent this critical care time directly and personally managing the patient. This critical care time included obtaining a history; examining the patient; pulse oximetry; ordering and review of studies; arranging urgent treatment with development of a management plan; evaluation of patient's r
[2022-04-23] MEDS: LORazepam INJ (*CRX) 2 MG/ML VIAL 0.5 MG IV PUSH (14:23)
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
[2022-04-23 15:01] LABS: Hematocrit 30.1 % (42.0-52.0); Hemoglobin 8.6 g/dL (14.0-18.0)
[2022-04-23] MEDS: SILVERGEL (ELTA) 45 ML 1 APPLIC TOPICAL (17:31)
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
[2022-04-23] MEDS: DOPamine 400 MG/D5W 250 ML 400 MG/250 ML BAG 13.97 MG IV CONT (21:00)
[2022-04-23] MEDS: CENTRAL LINE FLUSH 10 ML IV PUSH (21:01)
--- NOTE | 2022-04-23 21:05 | PCRCNOTE ---
Pt on cont. BIPAP 04/12 rate 14, Fi02 100%, SP02 89-92%. RT informed RN to contact MD and have setting changed on BIPAP to help his oxygen needs. Pt 418-VT, 39-RR, 15.1-MV, SP02-91%, breath sound diminished bilaterally.
[2022-04-23 21:38] LABS: Alveolar/Arterial O2 Gradient 611.6 mmHg; Base Excess ABG -2.4 mEq/l (+/-2.0); Carboxyhemoglobin 0.3 % THb (0-2.0); Fractional Inspired Oxygen 100 %; HCO3 ABG 22.6 mEq/l (22.0-26.0); Methemoglobin ABG 0.3 %THb (0-1.5); Oxygen Saturation ABG 91.2 % (95.0-100.0); Oxyhemoglobin 88.4 % THb (90.0-100.0); PCO2 ABG 39.7 mmHg (35.0-45.0); PO2 ABG 61.7 mmHg (80.0-100.0); PO2 FiO2 Ratio Arterial Blood 0.62 %; Total Hemoglobin 8.8 g/dL (12.0-18.0); pH ABG 7.373 (7.350-7.450)
[2022-04-23 21:41] LABS: Device BIPAP; Expiratory Pressure 5 cmH2O; Inspiratory Pressure 10 cmH2O; Modified Allen's Test Pass; Site Drawn RIGHT RADIAL
[2022-04-23 22:33] LABS: Hematocrit 31.6 % (42.0-52.0); Hemoglobin 8.9 g/dL (14.0-18.0); Mean Corpuscular HGB Conc 28.2 g/dl (32-36); Mean Corpuscular Hemoglobin 24.3 pg (26-34); Mean Corpuscular Volume 86.1 fl (80-100); Mean Platelet Volume 8.5 fl (7.4-10.4); Platelet Count Result 192 k/mm3 (150-375); Red Blood Count 3.67 M/mm3 (4.6-6.20); Red Cell Distribution Width 17.8 % (11.5-14.5); White Blood Count 23.7 K/mm3 (4.5-10.0)
[2022-04-24] VITALS (29 sets, daily range): BP systolic 84–135; BP diastolic 40–73; PULSE 38–62; RESP 14–41; TEMP 36.1–36.6; O2SAT 90–100; BMI 28.3
--- NOTE | 2022-04-24 | ECHO_ITS ---
Patient Info Name: Andrei Acosta Age: 61 years : 1960 Gender: Male Ht: 60 in Wt: 190 lbs BSA: 1.96 m2 HR: 56 bpm BP: 110 / 55 mmHg Heart Rhythm: Sinus Rhythm, Bradycardia Exam Date: 04/24/2022 8:08 AM Exam Location: [facility] Patient Status: Inpatient Admit Date: 04/22/2022 Staff Ordering Physician: Betty Butler PA-C Polishing Machine Tender: Jason Easton, [place], RT Attending Provider: Ej Flynn MD Referring Physician: Luke RYDER; Exam Type: CA echo doppler color flow Study Info Indications - elevated troponin I50.9 - Heart failure, unspecified Summary 1. Left ventricular systolic function is normal, estimated at 60-65%. 2. There is mildly increased left ventricular wall thickness. 3. Right ventricular systolic function is normal. 4. Right atrial chamber dimension is mildly enlarged. 5. There is moderate tricuspid valve regurgitation. 6. The aortic root size at the sinus of Valsalva is mildly dilated. 7. Estimated pulmonary artery systolic pressure is 61mmHg. Left Ventricle Left ventricular chamber dimension is normal. Left ventricular systolic function is normal, estimated at 60-65%. There is mildly increased left ventricular wall thickness. The left ventricular diastolic function is normal. Right Ventricle Right ventricular chamber dimension is normal. Right ventricular systolic function is normal. Left Atria Left atrial chamber dimension is normal. Right Atria Right atrial chamber dimension is mildly enlarged. Aortic Valve The aortic valve is trileaflet. There is no aortic valve stenosis. There is no aortic valve regurgitation. Pulmonic Valve The pulmonic valve is not well visualized. There is mild pulmonic regurgitation. Mitral Valve The mitral valve has normal leaflets. There is no mitral valve stenosis. There is no mitral valve regurgitation. Tricuspid Valve The tricuspid valve leaflets are normal. There is no significant tricuspid valve stenosis. There is moderate tricuspid valve regurgitation. Pericardium/Pleural There is trivial pericardial effusion. Inferior Vena Cava Dilated inferior vena cava with >50% collapse upon inspiration consistent with elevated right atrial pressure, 8 mmHg. Aorta The aortic root size at the sinus of Valsalva is mildly dilated. Left Ventricular Outflow Tract Name Value Normal LVOT 2D LVOT Diameter 2.0 cm LVOT Doppler LVOT Peak Gradient 5 mmHg LVOT Mean Gradient 2 mmHg LVOT VTI 16 cm LVOT VTI/AV VTI Ratio 0.5 LVOT Stroke Volume 54 ml LVOT CO 2.0 l/min LVOT CI 1.0 l/min/m2 Mitral Valve Name Value Normal MV Doppler MV Decel Sandoval
[2022-04-24] MEDS: CENTRAL LINE FLUSH 10 ML IV PUSH ×3 (04:05→21:06)
[2022-04-24 05:47] LABS: Alveolar/Arterial O2 Gradient 615.4 mmHg; Carboxyhemoglobin 0.3 % THb (0-2.0); Fractional Inspired Oxygen 100 %; HCO3 ABG 25.1 mEq/l (22.0-26.0); Methemoglobin ABG 0.6 %THb (0-1.5); Oxygen Content ABG 4.4 %vol (16.0-22.0); PCO2 ABG 43.6 mmHg (35.0-45.0); PO2 FiO2 Ratio Arterial Blood 0.54 %; Reduced Hemoglobin 12.4 %THb (0-5.0); pH ABG 7.378 (7.350-7.450)
[2022-04-24 05:51] LABS: Oxygen Saturation ABG 87.3 % (95.0-100.0); Total Hemoglobin 3.5 g/dL (12.0-18.0)
[2022-04-24 05:52] LABS: Device BIPAP; Inspiratory Pressure 15 cmH2O; Modified Allen's Test Pass; Oxyhemoglobin 86.7 % THb (90.0-100.0); Site Drawn RIGHT RADIAL
[2022-04-24 05:53] LABS: Expiratory Pressure 10 cmH2O
[2022-04-24 06:25] LABS: Basophils Absolute Auto 0.1 K/mm3 (0.0-0.1); Basophils Percent Auto 0.2 % (0.2-1.2); Hematocrit 31.3 % (42.0-52.0); Hemoglobin 8.7 g/dL (14.0-18.0); Immature Granulocyte Absolute 0.86 K/mm3 (0.00-0.031); Immature Granulocyte Percent A 3.5 % (0-0.5); Lymphocytes Absolute Auto 0.23 K/mm3 (0.9-3.2); Lymphocytes Percent Auto 0.9 % (18.3-44.2); Mean Corpuscular HGB Conc 27.8 g/dl (32-36); Mean Corpuscular Volume 86.5 fl (80-100); Mean Platelet Volume 8.4 fl (7.4-10.4); Monocytes Absolute Auto 1.1 K/mm3 (0.1-0.6); Monocytes Percent Auto 4.3 % (2.6-8.5); Neutrophils Absolute Auto 22.3 K/mm3 (1.3-6.7); Neutrophils Percent Auto 91.1 % (45.5-73.1); Nucleated Red Blood Cells Perc 0.2 % (0.0-0.2); Platelet Count Result 201 k/mm3 (150-375); Red Blood Count 3.62 M/mm3 (4.6-6.20); Red Cell Distribution Width 17.8 % (11.5-14.5); White Blood Count 24.5 K/mm3 (4.5-10.0)
[2022-04-24 06:35] LABS: Lactic Acid Reflex 0.9 mmol/L (0.7-2.0)
[2022-04-24 06:36] LABS: Alanine Aminotransferase 10 U/L (6-50); Albumin Level 2.2 g/dL (3.5-5.1); Alkaline Phosphatase 89 U/L (38-126); Anion Gap 9 mmol/L (8-16); Aspartate Amino Transferase 15 U/L (17-59); Bilirubin,Total 0.4 mg/dL (0.2-1.3); Blood Urea Nitrogen 29 mg/dL (9-20); Calcium 8.2 mg/dL (8.4-10.2); Carbon Dioxide 23 mmol/L (22-30); Chloride 101 mmol/L (98-107); Estimated CRCL calculation 67 ml/min; Estimated Glomerular Filt Rate > 60; Glucose 124 mg/dL (65-110); Magnesium 1.7 mg/dL (1.6-2.3); Phosphorus 5.8 mg/dL (2.5-4.5); Potassium 5.1 mmol/L (3.4-5.0); Sodium 133 mmol/L (137-145)
[2022-04-24 07:08] LABS: Platelet Estimate Adequate (Adequate)
[2022-04-24 07:09] LABS: Anisocytosis 1+ (NORMAL); Poikilocytosis 1+ (NORMAL)
[2022-04-24 08:44] LABS: Vancomycin Trough 28.1 ug/mL (10.0-20.0)
[2022-04-24] MEDS: FUROSEMIDE INJ 40 MG/4 ML VIAL IV PUSH (09:18)
[2022-04-24] MEDS: PANTOPRAZOLE SODIUM IV 40 MG VIAL IV PUSH ×2 (09:19→21:06)
--- NOTE | 2022-04-24 09:28 | ECG_ITS ---
Measurements Intervals [place] Rate: 33 P: GA: 0 QRS: 49 QRSD: 102 T: 68 QT: 504 QTc: 376 Interpretive Statements SLOW JUNCTIONAL RHYTHM WITH 1 PREMATURE ATRIAL CONTRACTION LOW QRS VOLTAGE IN EXTREMITY LEADS [QRS DEFLECTION < 0.5 mV IN LIMB LEADS] ANTEROSEPTAL MYOCARDIAL INFARCTION , PROBABLY OLD [40+ ms Q WAVE IN V1-V4] COMPARED TO ECG 04/22/2022 15:07:50 HEART RATE IS FURTHER REDUCED Electronically Signed On 04-24-2022 13:57:42 CDT by Asher Salazar M.D.
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
[2022-04-24] MEDS: DOPamine 400 MG/D5W 250 ML 400 MG/250 ML BAG 24.44 MG IV CONT (10:38)
--- NOTE | 2022-04-24 10:51 | WPDINTPN ---
Progress Note: A&P Assessment and Plan (1) Septic shock: Code(s): A41.9 - Sepsis, unspecified organism; R65.21 - Severe sepsis with septic shock Status: Acute Assessment and Plan: Patient presented with altered mental status, was found to be hypotensive in the ER. He was also bradycardic, leukocytosis, lactic acidosis. Patient was diagnosed with septic shock Septic shock secondary to decubitus wound infection, osteomyelitis, recurrent UTI also contributed by anemia -patient received 3 L of IV fluid bolus, blood pressures were still refractory to fluids, patient was started initially on Levophed. -was found to be bradycardic in the ER, EKG showed junctional rhythm Levophed was switched to dopamine because of bradycardia in the ICU -continue dopamine maintain mean arterial pressures > 65 mmHg for adequate end organ perfusion -patient was initially started started on vancomycin and Zosyn (04/22) -blood cultures are negative in -urine cultures is growing Gram-negative rods. Patient has history of multi drug resistant E coli -wound cultures have been sent (2) Hypoxia: Code(s): R09.02 - Hypoxemia Status: Acute Assessment and Plan: Patient was hypoxic with some respiratory distress, chest x-ray showed pulmonary edema likely related to IV fluids and blood transfusions -patient received Lasix but continues to be hypoxic -he is currently on BiPAP and tolerating it adequately. His saturations adequate and he is not in any distress -I have wean down his FiO2 to 80% -will repeat dose of Lasix today -continue to monitor closely as patient may need intubation. Especially if he needs to go to operating room for debridement (3) Anemia: Code(s): D64.9 - Anemia, unspecified Status: Acute Assessment and Plan: Patient was found to be severely anemic with hemoglobin of 5.5 on admission. Pt had vlack stools -hemoccult was positive -received 2 units of packed RBCs -repeat hemoglobin has been stable -Continue Protonix IV Q12H -GI consulted I have discussed case with Dr. Topete. He does not plan to do EGD at this time. (4) Acute GI bleeding: Code(s): K92.2 - Gastrointestinal hemorrhage, unspecified Status: Acute Assessment and Plan: As above (5) Protein calorie malnutrition: Code(s): E46 - Unspecified protein-calorie malnutrition Status: Acute Assessment and Plan: Make Up Editor consulted Decrease Pre albumin Will require supplements (6) Quadriplegic spinal paralysis: Code(s): G82.50 - Quadriplegia, unspecified Status: Acute Assessment and Plan: chronic (7) Pressure ulcer of unspecified buttock, unspecified stage: Code(s): L89.309 - Pressure ulcer of unspecified buttock, unspecified stage Status: Acute Assessment and Plan: - Multiple decubitus ulcers and some of which are infected -I spoke to wound care nurse who has evaluated patient the passes out patient and she told me the patient's has multiple new ulcers and old ulcers are much more deeper. The ulcers on heels are new since last evaluation in the -patient's told me that she takes care of his wound dressings and does not have any home health for wound care personal coming at home -dressing change was done this morning -general surgery has evaluated the patient. Dr. Contreras would like Orthopedics to evaluate patient and then come up with a plan -continue antibiotics as above 04/22: CT scan of the abdomen and pelvis showed small volume loculated pleural fluid, hepatic splenomegaly, possible mild fecal impaction, chronic cystitis, large perineal soft tissue defect extending to bone, early acute/chronic osteomyelitis and/or left hip septic arthritis not excluded. 04/22: X-ray of the bilateral feet showing Possible focus of acute osteomyelitis in the left distal phalanx. Large bilateral cutaneous defects over the heels, with possible exposure of bone on the right. Early acute
--- NOTE | 2022-04-24 10:59 | PM.PNGS ---
Progress Note: A&P Assessment and Plan (1) Osteomyelitis: Code(s): M86.9 - Osteomyelitis, unspecified Status: Acute Assessment and Plan: Patient with multiple large wounds that extend to bone. He has a necrotic right heel ulcer with purulent drainage. X-rays suggested early acute and/or chronic osteomyelitis of the bilateral calcaneus bones. Left heel ulcer does not seem to probe to bone and no purulent drainage. He also has bilateral ischial wounds that probe to bone. The right ischial wound has some purulent drainage and necrotic tissue. Wound care was consulted today. Continue local wound care for now. In view of the possibility of multiple areas of osteomyelitis and his extensive history of orthopedic surgery, we would recommend consulting Orthopedic surgery for evaluation of his multiple wounds for their recommendations for any surgical intervention. Continue broad-spectrum IV antibiotics. (2) Septic shock: Code(s): A41.9 - Sepsis, unspecified organism; R65.21 - Severe sepsis with septic shock Status: Acute Assessment and Plan: Source of sepsis could be related to infected decubitus ulcers, osteomyelitis, recurrent UTI, or multifactorial. Continue IV antibiotics. See plan above regarding wounds. Wound cultures obtained from left groin wound, right foot ulcer and right ankle ulcer today. Urine cx growing gram negative bacilli, awaiting final results. Blood cx NGTD. (3) Protein calorie malnutrition: Code(s): E46 - Unspecified protein-calorie malnutrition Status: Acute (4) Acute on chronic anemia: Code(s): D64.9 - Anemia, unspecified Status: Acute (5) Pressure ulcers of skin of multiple topographic sites: Code(s): L89.90 - Pressure ulcer of unspecified site, unspecified stage Status: Acute (6) Quadriplegia, C5-C7 incomplete: Code(s): G82.54 - Quadriplegia, C5-C7 incomplete Status: Acute (7) Hypoxia: Code(s): R09.02 - Hypoxemia Status: Acute Assessment and Plan: Currently on BiPAP. Increases risks for any surgical intervention. (8) GI bleed: Code(s): K92.2 - Gastrointestinal hemorrhage, unspecified Status: Acute Assessment and Plan: GI has been consulted. Plan I have discussed the patient's case and plan of care with Dr. Contreras. Subjective Subjective Date/Time Seen: 04/24/22 10:10 Interval history: Patient seen in the ICU with his at the bedside. I was accompanied by the wound care nurses as well. He wakes up by saying his name and answers simple questions. He is on BiPAP and it is difficult to understand some of his words. He is currently on a dopamine drip and bradycardic with a heart rate of 55 on the monitor. He has been seeing the wound care nurses for maintenance wound care and supplies for years. He was last seen in their clinic February 08 when he was seen for wounds on his buttocks. These are chronic wounds and at that time appeared stable. His cares for him at home by herself. She states he last had seen a surgeon for his wounds in around when he was at [place] for surgeries on his right hip. Since then, he has no had any further surgery for his wounds. She states at that time he was known to have osteomyelitis in the location of his sacral/ischial wounds. Review of Systems Review of Systems: ROS unobtainable: Yes unobtainable due to medical condition Exam Const: General: in distress mild and ill appearing acutely and chronically Orientation/consciousness: lethargic Urinary Catheter: Urinary Catheter: patent and draining (suprapubic cath) and urine clear Skin: Other: (See wound care nurse note for all wound measurements) Large right ischial wound that extends to bone with about 50% irizarry/reyes necrotic tissue and 50% pink granulation tissue, mild odor, no obvious purulent drainage, no crepitus. Multiple superficial wounds with some superficial maceration of the le
[2022-04-24 11:02] LABS: Anion Gap 6 mmol/L (8-16); Blood Urea Nitrogen 31 mg/dL (9-20); Calcium 8.1 mg/dL (8.4-10.2); Carbon Dioxide 23 mmol/L (22-30); Chloride 102 mmol/L (98-107); Estimated CRCL calculation 67 ml/min; Estimated Glomerular Filt Rate > 60; Glucose 130 mg/dL (65-110); Potassium 4.9 mmol/L (3.4-5.0); Sodium 131 mmol/L (137-145)
[2022-04-24 11:08] LABS: Schistocytes None Seen (NORMAL)
--- NOTE | 2022-04-24 11:22 | WPDCDIQUERY2 ---
CDI Query Clarification Request 04/22 ER Physician documented: Discharge Clinical Impression: ?Acute GI bleeding, Anemia, Sepsis, UTI (urinary tract infection) due to urinary indwelling Kelly catheter, Acute alteration in mental status, Pneumonia, Elevated troponin, Acute hypotension Chest X-Ray? 04/22/22 14:54 IMPRESSION: ? Pulmonary opacities, may reflect edema and/or the consolidation of pneumonia. Moderate left pleural effusion. Please clarify if diagnosis, Pneumonia has been ruled in or ruled out. If ruled in please add to problem list.
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
[2022-04-24] MEDS: SILVERGEL (ELTA) 45 ML 1 APPLIC TOPICAL (13:38)
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
--- NOTE | 2022-04-24 15:45 | PM.CNOR ---
Assessment and Plan Assessment and plan (1) Osteomyelitis: Code(s): M86.9 - Osteomyelitis, unspecified <Sherrie Mena, TWISTER T[employer]ER - Last Filed: 04/24/22 16:12> Status: Acute <Sherrieoscar Mena, TWISTER TENDER - Last Filed: 04/24/22 16:12> Assessment and Plan: History, exam and radiographs reviewed with the patient's at bedside. Patient on BIPAP at the time of exam. Radiographs reveal evidence of previous bilateral calcaneal resections and large cutaneous defects over the bilateral heels. Both heel wounds probe to bone. Additionally, the right anterior ankle wound probes proximally over the tibia. Patient would likely benefit surgical debridement of bilateral heels verses bilateral [id number] amputation given location and severity of both wounds as well as the right anterior ankle wound. Surgical debridement versus amputation deferred until medical stabilization. Given patient has bilateral heel ulcers and ankle ulcer with probing to bone and likely underlying osteomyelitis as well as significant ischial wounds which probed to bone, patient may benefit from transfer to a tertiary care center for plastic surgery surgical debridement. Will determine further plan of care pending medical stabilization and evaluation by Dr. Denise. We will continue to follow patient. <Sherrie yLabbie, TWISTER TENDER - Last Filed: 04/24/22 16:12> (2) Pressure ulcer of unspecified buttock, unspecified stage: Code(s): L89.309 - Pressure ulcer of unspecified buttock, unspecified stage <Sherrie McgillMari Mena, [facility] - Last Filed: 04/24/22 16:12> Status: Acute <Sherrie Lyabbie, TWISTER TENDER - Last Filed: 04/24/22 16:12> Assessment and Plan: Ischial wounds with probing to bone. General surgery request for consult due to concern for bone involvement and osteomyelitis. Patient would likely benefit from plastic surgery evaluation vs. transfer to tertiary care center for ischial wound management. <Sherrie Lyabbie, TWISTER TENDER - Last Filed: 04/24/22 16:12> (3) Quadriplegia, C5-C7 incomplete: Code(s): G82.54 - Quadriplegia, C5-C7 incomplete <Sherrie McgillMari Mena, TWISTER TENDER - Last Filed: 04/24/22 16:12> Status: Acute <Sherrie M. Ruwe, TWISTER TENDER - Last Filed: 04/24/22 16:12> (4) Quadriplegic spinal paralysis: Code(s): G82.50 - Quadriplegia, unspecified <Sherrie M. Ruwe, TWISTER TENDER - Last Filed: 04/24/22 16:12> Status: Acute <Sherrie M. Ruwe, TWISTER TENDER - Last Filed: 04/24/22 16:12> (5) Suprapubic catheter: Code(s): Z93.59 - Other cystostomy status <Sherrie M. Ruwe, TWISTER TENDER - Last Filed: 04/24/22 16:12> Status: Acute <Sherrie M. Ruwe, TWISTER TENDER - Last Filed: 04/24/22 16:12> Assessment and Plan: Suprapubic catheter urine cultures pending. IV antibiotics started. Pharm ID consulted by Dr. Contreras. <Sherrie M. Ruwe, TWISTER TENDER - Last Filed: 04/24/22 16:12> (6) Sepsis: Code(s): A41.9 - Sepsis, unspecified organism <Sherrie M. Ruwe, TWISTER TENDER - Last Filed: 04/24/22 16:12> Status: Acute <Sherrie M. Ruwe, TWISTER TENDER - Last Filed: 04/24/22 16:12> Assessment and Plan: Patient with infected decubitus ulcers, osteomyelitis of the heels & recurrent UTI. Continue IV antibiotics. <Sherrie M. Ruwe, TWISTER TENDER - Last Filed: 04/24/22 16:12> (7) Acute alteration in mental status: Code(s): R41.82 - Altered mental status, unspecified <Sherrie M. Ruwe, TWISTER TENDER - Last Filed: 04/24/22 16:12> Status: Acute <Sherrie M. Ruwe, TWISTER TENDER - Last Filed: 04/24/22 16:12> Assessment and Plan: Orthopedic consultation reviewed. Radiographs reviewed. Agree with assessment. Bilateral foot ulcers with osteomyelitis treatment discussed. Pelvis wounds and involvement beyond the scope of care. Will defer to General surgery. Will discuss further with care team and family. <True Denise MD - Last Filed: 04/25/22 08:34> Assessment and Plan: I have discussed the patient's history, images and assessment with my attending physician, Dr. Rivera
[2022-04-24] MEDS: ALBUTEROL SULFATE NEB 2.5 MG/3 ML INH INHALATION (20:28)
[2022-04-24] MEDS: SALINE LOCK FLUSH 10 ML IV PUSH (21:06)
[2022-04-24] MEDS: LORazepam INJ (*CRX) 2 MG/ML VIAL 0.5 MG IV PUSH (23:41)
[2022-04-25] VITALS (28 sets, daily range): BP systolic 107–131; BP diastolic 48–67; PULSE 45–63; RESP 13–32; TEMP 36.6–36.9; O2SAT 91–99; BMI 27.6
[2022-04-25 00:30] LABS: Gentamicin Random 11.2 ug/mL (5.0-12.0)
[2022-04-25] MEDS: DOPamine 400 MG/D5W 250 ML 400 MG/250 ML BAG 17.46 MG IV CONT ×2 (00:50→14:34)
[2022-04-25 04:30] LABS: Hematocrit 28.4 % (42.0-52.0); Mean Corpuscular HGB Conc 28.2 g/dl (32-36); Mean Corpuscular Volume 85.3 fl (80-100); Mean Platelet Volume 8.6 fl (7.4-10.4); Platelet Count Result 146 k/mm3 (150-375); Red Blood Count 3.33 M/mm3 (4.6-6.20); Red Cell Distribution Width 17.5 % (11.5-14.5); White Blood Count 14.5 K/mm3 (4.5-10.0)
[2022-04-25 04:44] LABS: Alanine Aminotransferase 12 U/L (6-50); Albumin Level 2.3 g/dL (3.5-5.1); Alkaline Phosphatase 85 U/L (38-126); Anion Gap 8 mmol/L (8-16); Aspartate Amino Transferase 16 U/L (17-59); Bilirubin,Total 0.6 mg/dL (0.2-1.3); Blood Urea Nitrogen 34 mg/dL (9-20); Calcium 7.6 mg/dL (8.4-10.2); Carbon Dioxide 24 mmol/L (22-30); Chloride 101 mmol/L (98-107); Estimated CRCL calculation 67 ml/min; Estimated Glomerular Filt Rate > 60; Glucose 110 mg/dL (65-110); Magnesium 1.8 mg/dL (1.6-2.3); Phosphorus 5.4 mg/dL (2.5-4.5); Potassium 4.4 mmol/L (3.4-5.0); Sodium 133 mmol/L (137-145)
[2022-04-25] MEDS: SALINE LOCK FLUSH 10 ML IV PUSH ×3 (05:04→20:49)
[2022-04-25] MEDS: CENTRAL LINE FLUSH 10 ML IV PUSH ×3 (05:04→20:49)
--- NOTE | 2022-04-25 08:34 | PM.PNORT ---
Progress Note: A&P Assessment and Plan (1) Acute osteomyelitis of left calcaneus: Code(s): M86.172 - Other acute osteomyelitis, left ankle and foot Status: Acute (2) Acute osteomyelitis of right calcaneus: Code(s): M86.171 - Other acute osteomyelitis, right ankle and foot Status: Acute Assessment and Plan: Patient seen and examined. Discussed with ICU team. Bilateral heel ulcers with suspected osteomyelitis of the calcaneus. Surgical options including bilateral amputation versus attempt at salvage with debridement. Very difficult course with attempt at salvage given medical comorbidities. Will discuss with family today. Continue dressing changes , IV antibiotics in the interim. ischial ulceration and infection. Will defer to General surgery and other specialist teams. Subjective Subjective Date/Time Seen: 04/25/22 08:34 Principal diagnosis: Bilateral heel osteomyelitis Interval history: patient sedated, BiPAP. on pressors for heart rate. Nonverbal at this time. Exam Const: General: in distress mild and ill appearing acutely and chronically Orientation/consciousness: lethargic Urinary Catheter: Urinary Catheter: patent and draining (suprapubic cath) and urine clear Extrem: General: other (quadriplegic) Right lower extremity: foot (Quadriplegia ) Details: vascular exam Details: dorsalis pedis pulse present and coolness Location: of the entire foot and other (see wound assessment ) Left lower extremity: hip/thigh Details: abnormal to inspection (Large incision ) Details: obviously dislocated, foreshortened and externally rotated and abnormal ROM Details: held in an abnormal fashion Details: in external rotation; no tenderness, no swelling and ROM abnormal and foot (Quadraplegia ) Details: vascular exam Details: dorsalis pedis pulse present (doppler ) and coolness; capillary refill abnormal Other: Right Heel: Large necrotic ulcer that extends to bone with necrotic tissue and purulent drainage, Malodor. Right anterior ankle: Large necrotic ulcer that extends proximally towards the tibia. Purulence. Malodor. Left Heel: Large necrotic ulcer, eschar, probes to bone, some purulence. Mild malodor. Left Anterior Ankle: Small skin tear, 100% red/pink wound bed. Does not extend to bone. Objective Data Vital Signs Vital Signs: Vital Signs - 24 hr 04/24/22 08:35 04/24/22 10:38 04/24/22 10:38 Temperature Pulse Rate 56 L 55 L 55 L Respiratory Rate 19 Blood Pressure 93/60 L Pulse Oximetry 99 Oxygen Delivery BiPAP Oxygen Flow Rate Fraction of Inspired Oxygen 04/24/22 10:30 04/24/22 10:43 04/24/22 10:00 Temperature Pulse Rate 45 L 38 L 60 Respiratory Rate 34 H Blood Pressure 84/62 L Pulse Oximetry 97 Oxygen Delivery BiPAP Oxygen Flow Rate Fraction of Inspired Oxygen 04/24/22 10:00 04/24/22 10:45 04/24/22 11:30 Temperature Pulse Rate 60 62 54 L Respiratory Rate 17 Blood Pressure 135/73 117/66 112/56 L Pulse Oximetry 100 Oxygen Delivery Oxygen Flow Rate Fraction of Inspired Oxygen 04/24/22 12:00 04/24/22 12:00 04/24/22 12:00 Temperature 97.6 F Pulse Rate 55 L 55 L 55 L Respiratory Rate 20 20 Blood Pressure 97/61 L Pulse Oximetry 96 96 Oxygen Delivery BiPAP Oxygen Flow Rate Fraction of Inspired Oxygen 60 04/24/22 11:46 04/24/22 12:57 04/24/22 14:00 Temperature Pulse Rate 56 L 53 L 52 L Respiratory Rate 20 16 Blood Pressure Pulse Oximetry 98 96 Oxygen Delivery BiPAP BiPAP Oxygen Flow Rate Fraction of Inspired Oxygen 60 50 04/24/22 14:00 04/24/22 13:45 04/24/22 13:45 Temperature Pulse Rate 52 L 54 L 54 L Respiratory Rate 17 20 20 Blood Pressure 121/65 Pulse Oximetry 96 94 94 Oxygen Delivery BiPAP BiPAP Oxygen Flow Rate Fraction of Inspired Oxygen 45 04/24/22 14:00 04/24/22 15:30 04/24/22 16:00 Temperature Pulse Rate 52 L 54 L 53 L Respiratory Rate
[2022-04-25] MEDS: FUROSEMIDE INJ 40 MG/4 ML VIAL IV PUSH (09:10)
[2022-04-25] MEDS: SILVERGEL (ELTA) 45 ML 1 APPLIC TOPICAL (09:10)
[2022-04-25] MEDS: PANTOPRAZOLE SODIUM IV 40 MG VIAL IV PUSH ×2 (09:15→20:48)
--- NOTE | 2022-04-25 09:19 | WPDINTPN ---
Progress Note: A&P Assessment and Plan (1) Acute respiratory failure with hypoxia: Code(s): J96.01 - Acute respiratory failure with hypoxia Status: Acute Assessment and Plan: Patient was hypoxic with some respiratory distress, chest x-ray showed pulmonary edema likely related to IV fluids and blood transfusions, pneumonia is also possible Continue Lasix He has been on BiPAP 15/10 and 45% FiO2 but did tolerate Airvo for 5 hours yesterday evening I will transition him to Airvo this morning and see if he tolerates. Obviously if he deteriorates he will need intubation and mechanical ventilation Continue close monitoring He is on broad-spectrum antibiotics (2) Septic shock: Code(s): A41.9 - Sepsis, unspecified organism; R65.21 - Severe sepsis with septic shock Status: Acute Assessment and Plan: Patient presented with altered mental status, was found to be hypotensive in the ER. He was also bradycardic, leukocytosis, lactic acidosis. Patient was diagnosed with septic shock Septic shock secondary to decubitus wound infection, osteomyelitis, recurrent UTI, ? Pneumonia, also contributed by anemia -patient received 3 L of IV fluid bolus, blood pressures were still refractory to fluids, patient was started initially on Levophed. -was found to be bradycardic in the ER, EKG showed junctional rhythm Levophed was switched to dopamine because of bradycardia in the ICU -continue dopamine maintain mean arterial pressures > 65 mmHg for adequate end organ perfusion -patient was initially started started on vancomycin and Zosyn (04/22) gentamicin was added 04/24 -blood cultures are negative in -urine cultures is growing Gram-negative rods. Patient has history of multi drug resistant E coli -wound cultures have been sent (3) Pressure ulcer of unspecified buttock, unspecified stage: Code(s): L89.309 - Pressure ulcer of unspecified buttock, unspecified stage Status: Acute Assessment and Plan: - Multiple decubitus ulcers and some of which are infected -04/24 I spoke to wound care nurse who has evaluated patient in the past as out patient and she told me the patient's has multiple new ulcers and old ulcers are much more deeper. The ulcers on heels are new since last evaluation in the clinic -patient's told me that she takes care of his wound dressings and does not have any home health for wound care personal coming at home -dressing change were done done 04/24 -general surgery has evaluated the patient. Dr. Contreras would like Orthopedics to evaluate patient -I spoke to with Orthopedics. He is going to discuss options of bilateral amputation versus debridement with patient's and also discuss with surgery -continue antibiotics as above 04/22: CT scan of the abdomen and pelvis showed small volume loculated pleural fluid, hepatic splenomegaly, possible mild fecal impaction, chronic cystitis, large perineal soft tissue defect extending to bone, early acute/chronic osteomyelitis and/or left hip septic arthritis not excluded. 04/22: X-ray of the bilateral feet showing Possible focus of acute osteomyelitis in the left distal phalanx. Large bilateral cutaneous defects over the heels, with possible exposure of bone on the right. Early acute and/or chronic osteomyelitis of the bilateral calcaneus bones cannot be excluded (4) UTI (urinary tract infection) due to urinary indwelling Kelly catheter: Code(s): T83.511A - Infection and inflammatory reaction due to indwelling urethral catheter, initial encounter; N39.0 - Urinary tract infection, site not specified Status: Acute Assessment and Plan: Urine cultures growing Gram-negative rods. Identification is pending. History of multidrug resistant E coli Will give 1 dose of gentamicin and hopefully by that time will have identification and septic Discussed with pharmacy and requested them to dose (5) Bradycardia: Code(s): R00.1 - Bradycar
--- NOTE | 2022-04-25 10:32 | PM.PNCARD ---
Progress Note: A&P Assessment and Plan (1) Acute respiratory failure with hypoxia: Code(s): J96.01 - Acute respiratory failure with hypoxia Status: Acute (2) Acute osteomyelitis of right calcaneus: Code(s): M86.171 - Other acute osteomyelitis, right ankle and foot Status: Acute (3) Acute osteomyelitis of left calcaneus: Code(s): M86.172 - Other acute osteomyelitis, left ankle and foot Status: Acute (4) Occult blood in stools: Code(s): R19.5 - Other fecal abnormalities Status: Acute (5) Bradycardia: Code(s): R00.1 - Bradycardia, unspecified Status: Acute (6) Sepsis: Code(s): A41.9 - Sepsis, unspecified organism Status: Acute Plan Patient currently in sinus bradycardia on Dopamine infusion.? Evidence of 2:1 av block possible Mobitz type 2 second-degree AV block followed by junctional rhythm at presentation. Repeat ECGs showing junctional bradycardia with PACs. Explained possibility he could progressed to high-grade AV block necessitating temporary transvenous pace maker and or ultimately require permanent pacemaker implantation. However, this is problematic due to his sepsis and osteomyelitis. At this time, would continue to monitor on telemetry. Continue Dopamine infusion - would avoid placing a temporary transvenous pacer line at this time. Keep electrolytes optimized. Avoid all AV tabatha blocking agents or any medication which may result in bradycardia. Obtain daily EKGs. TTE done - will follow up on results. Patient is currently awaiting transfer to [place]. Subjective Date/time seen: 04/25/22 10:32 Interval history: Reason for follow-up visit: Bradycardia Telemetry shows patient currently in sinus bradycardia. Has intermittent junctional rhythm with occasional pauses of up to 4 seconds. Patient denies feeling dizzy/lightheaded yesterday or overnight. Has not syncopized. Remains on Dopamine drip - currently @ 5. Given the extent of his wounds, surgery recommending transfer to tertiary center for advanced care. Review of Systems Review of Systems: All systems reviewed & are unremarkable except as noted in HPI and below (subjective) Exam Const: General: no acute distress Eyes: General: appearance normal, both eyes and all related structures Neck: Neck: no JVD Resp: Effort & Inspection: normal respiratory effort Auscultation: diminished lung sounds Other: On HFNC Cardio: Rate: bradycardic Rhythm: regular rhythm Heart sounds: no murmurs Skin: Other: Multiple wounds on legs, sacrum Neuro: Speech: normal speech Psych: Mental Status: mental status grossly normal Objective Data Vital Signs Vital Signs: Vital Signs - 24 hr 04/24/22 10:38 04/24/22 10:38 04/24/22 10:43 Temperature Pulse Rate 55 L 55 L 38 L Respiratory Rate 34 H Blood Pressure 93/60 L Pulse Oximetry 97 Oxygen Delivery BiPAP Oxygen Flow Rate Fraction of Inspired Oxygen 04/24/22 10:45 04/24/22 11:30 04/24/22 12:00 Temperature Pulse Rate 62 54 L 55 L Respiratory Rate Blood Pressure 117/66 112/56 L Pulse Oximetry Oxygen Delivery Oxygen Flow Rate Fraction of Inspired Oxygen 04/24/22 12:00 04/24/22 12:00 04/24/22 11:46 Temperature 36.4 C Pulse Rate 55 L 55 L 56 L Respiratory Rate 20 20 20 Blood Pressure 97/61 L Pulse Oximetry 96 96 98 Oxygen Delivery BiPAP BiPAP Oxygen Flow Rate Fraction of Inspired Oxygen 60 60 04/24/22 12:57 04/24/22 14:00 04/24/22 14:00 Temperature Pulse Rate 53 L 52 L 52 L Respiratory Rate 16 17 Blood Pressure 121/65 Pulse Oximetry 96 96 Oxygen Delivery BiPAP Oxygen Flow Rate Fraction of Inspired Oxygen 50 04/24/22 13:45 04/24/22 13:45 04/24/22 14:00 Temperature Pulse Rate 54 L 54 L 52 L Respiratory Rate 20 20 Blood Pressure 121/65 Pulse Oximetry 94 94 Oxygen Delivery BiPAP BiPAP Oxygen Flow Rate Fraction of Inspired Oxygen 45
--- NOTE | 2022-04-25 11:20 | WPDGIPROGNO ---
Progress Note: A&P Assessment and Plan (1) Acute respiratory failure with hypoxia: Code(s): J96.01 - Acute respiratory failure with hypoxia Status: Acute Assessment and Plan: Patient remains hypoxemic with respiratory difficulties. Since no active bleeding would defer invasive endoscopy at present. Continue to treat empirically for possible stress ulceration (2) Occult blood in stools: Code(s): R19.5 - Other fecal abnormalities Status: Acute Assessment and Plan: Occult blood noted in stool. Black stools were described by . Plan to treat for possible upper GI blood loss. He has a distant history of ulcers. Appears to be a setup for stress ulceration will treat empirically with PPI therapy. Continue to monitor hemoglobin. (3) UTI (urinary tract infection): Code(s): N39.0 - Urinary tract infection, site not specified Status: Acute (4) Acute on chronic anemia: Code(s): D64.9 - Anemia, unspecified Status: Acute Assessment and Plan: Patient chronically anemic from his overall medical condition. This is worsened potentially from GI blood loss but also because of osteomyelitis multiple decubitus ulcers respiratory difficulties, etc.. (5) Bradycardia: Code(s): R00.1 - Bradycardia, unspecified Status: Acute Assessment and Plan: Cardiology following. Pacemaker may need to be considered. Deferred because of infections active at present. (6) Pressure ulcers of skin of multiple topographic sites: Code(s): L89.90 - Pressure ulcer of unspecified site, unspecified stage Status: Acute Subjective Date/time seen: 04/25/22 11:20 Patient remains in the ICU. No significant signs of additional bleeding. Stools were black on admission. Hemoglobin has remained stable. Review of Systems Review of Systems: Review of systems noncontributory. Exam Narrative: Physical exam reveals patient to be alert. His mental status seems to fluctuate. Unable to give any useful history. lungs reveal scattered rhonchi. Heart without murmur but bradycardic. Abdomen protuberant. This is stable stay. Bowel sounds are present. No obvious tenderness no organomegaly. Objective Data Vital Signs Vital Signs: Vital Signs - 24 hr 04/24/22 11:30 04/24/22 12:00 04/24/22 12:00 Temperature 97.6 F Pulse Rate 54 L 55 L 55 L Respiratory Rate 20 Blood Pressure 112/56 L 97/61 L Pulse Oximetry 96 Oxygen Delivery Oxygen Flow Rate Fraction of Inspired Oxygen 04/24/22 12:00 04/24/22 11:46 04/24/22 12:57 Temperature Pulse Rate 55 L 56 L 53 L Respiratory Rate 20 20 16 Blood Pressure Pulse Oximetry 96 98 96 Oxygen Delivery BiPAP BiPAP BiPAP Oxygen Flow Rate Fraction of Inspired Oxygen 60 60 50 04/24/22 14:00 04/24/22 14:00 04/24/22 13:45 Temperature Pulse Rate 52 L 52 L 54 L Respiratory Rate 17 20 Blood Pressure 121/65 Pulse Oximetry 96 94 Oxygen Delivery BiPAP Oxygen Flow Rate Fraction of Inspired Oxygen 04/24/22 13:45 04/24/22 14:00 04/24/22 15:30 Temperature Pulse Rate 54 L 52 L 54 L Respiratory Rate 20 Blood Pressure 121/65 117/67 Pulse Oximetry 94 Oxygen Delivery BiPAP Oxygen Flow Rate Fraction of Inspired Oxygen 45 04/24/22 16:00 04/24/22 16:00 04/24/22 16:00 Temperature 96.9 F L Pulse Rate 53 L 53 L 53 L Respiratory Rate 14 14 Blood Pressure 120/64 Pulse Oximetry 95 95 Oxygen Delivery High Flow Therapy with Na Oxygen Flow Rate 30 Fraction of Inspired Oxygen 75 04/24/22 17:09 04/24/22 16:00 04/24/22 18:00 Temperature Pulse Rate 55 L 54 L 55 L Respiratory Rate 22 H Blood Pressure 88/67 L Pulse Oximetry 94 Oxygen Delivery High Flow Therapy with Na Oxygen Flow Rate 30 Fraction of Inspired Oxygen 75 04/24/22 18:00 04/24/22 20:00 04/24/22 20:10 Temperature Pulse Rate 55 L 59 L 53 L Respiratory Rate 22 H 26
--- NOTE | 2022-04-25 12:42 | PM.PNGS ---
Progress Note: A&P Assessment and Plan (1) Osteomyelitis: Code(s): M86.9 - Osteomyelitis, unspecified Status: Acute Assessment and Plan: Patient with multiple large wounds that extend to bone. He has a necrotic right heel ulcer with purulent drainage. X-rays suggested early acute and/or chronic osteomyelitis of the bilateral calcaneus bones. Left heel ulcer does not seem to probe to bone and no purulent drainage. He also has bilateral ischial wounds that probe to bone. The right ischial wound has some purulent drainage and necrotic tissue. Discussed the case with Ortho, who has offered either bilateral BKA versus trying debridement to salvage the foot. Deferring treatment of the ischial ulcers to general surgery. Given his extensive previous orthopedic and plastic surgeries, we would recommend trying to transfer the patient to [place] where he received previous treatment. I discussed this with the Land Commissioner who will try working on transfer. Continue local wound care for now. Continue broad-spectrum IV antibiotics. Cultures pending. (2) Septic shock: Code(s): A41.9 - Sepsis, unspecified organism; R65.21 - Severe sepsis with septic shock Status: Acute Assessment and Plan: Source of sepsis could be related to infected decubitus ulcers, osteomyelitis, recurrent UTI, or multifactorial. Continue IV antibiotics. See plan above regarding wounds. Wound cultures pending from left groin wound, right foot ulcer and right ankle ulcer. Urine cx growing gram negative bacilli, awaiting final results. Blood cx NGTD. (3) Protein calorie malnutrition: Code(s): E46 - Unspecified protein-calorie malnutrition Status: Acute (4) Acute on chronic anemia: Code(s): D64.9 - Anemia, unspecified Status: Acute (5) Pressure ulcers of skin of multiple topographic sites: Code(s): L89.90 - Pressure ulcer of unspecified site, unspecified stage Status: Acute (6) Quadriplegia, C5-C7 incomplete: Code(s): G82.54 - Quadriplegia, C5-C7 incomplete Status: Acute (7) Hypoxia: Code(s): R09.02 - Hypoxemia Status: Acute Assessment and Plan: Currently on high flow O2. Increases risks for any surgical intervention. (8) GI bleed: Code(s): K92.2 - Gastrointestinal hemorrhage, unspecified Status: Acute Assessment and Plan: GI still deferring endoscopy due to respiratory status. Continue empiric treatment for stress ulceration. Plan I have discussed the patient's case and plan of care with Dr. Contreras. Subjective Subjective Date/Time Seen: 04/25/22 10:02 Patient reports: no new complaints Interval history: Patient seen and examined. He appears more alert today and is able to answer questions appropriately. His and son are at the bedside. He is on high flow therapy at 40 L/min and 50% FiO2. Exam Const: General: no acute distress, alert and ill appearing Orientation/consciousness: confusion (hx memory loss/dementia) Urinary Catheter: Urinary Catheter: patent and draining (suprapubic cath) and urine clear Skin: Other: Did not assess ischial and buttock wounds today, patient was supine, I assessed his wounds yesterday. Bilateral foot dressings changed at the bedside. No significant changes to his exam compared to yesterday. Extrem: General: other (quadriplegic) Objective Data Vital Signs Vital Signs: Vital Signs - 24 hr 04/24/22 12:57 04/24/22 14:00 04/24/22 14:00 Temperature Pulse Rate 53 L 52 L 52 L Respiratory Rate 16 17 Blood Pressure 121/65 Pulse Oximetry 96 96 Oxygen Delivery BiPAP Oxygen Flow Rate Fraction of Inspired Oxygen 50 04/24/22 13:45 04/24/22 13:45 04/24/22 14:00 Temperature Pulse Rate 54 L 54 L 52 L Respiratory Rate 20 20 Blood Pressure 121/65 Pulse Oximetry 94 94 Oxygen Delivery BiPAP BiPAP Oxygen Flow Rate Fraction of Inspired Oxygen 45 04/24/22 15:30 04/24/22 16:
--- NOTE | 2022-04-25 12:43 | PCSTNOTE ---
Please refer to the Bedside Swallow Evaluation in the EMR. Please note, silent aspiration cannot be ruled out at bedside.
[2022-04-25] MEDS: ONDANSETRON INJ 4 MG/2 ML VIAL IV PUSH ×2 (12:59→18:22)
--- NOTE | 2022-04-25 17:52 | PC.NURSE ---
Patient accepted to [facility] ICU waiting list per Dr. Randi Allen.
[2022-04-25 23:54] LABS: Gentamicin Random 5.1 ug/mL (5.0-12.0)
[2022-04-26] VITALS (99 sets, daily range): BP systolic 105–134; BP diastolic 45–61; PULSE 49–92; RESP 12–37; TEMP 36.6–37.3; O2SAT 89–100
[2022-04-26] MEDS: LORazepam INJ (*CRX) 2 MG/ML VIAL 0.5 MG IV PUSH (03:45)
[2022-04-26 03:51] LABS: Hematocrit 27.4 % (42.0-52.0); Hemoglobin 7.7 g/dL (14.0-18.0); Mean Corpuscular HGB Conc 28.1 g/dl (32-36); Mean Corpuscular Hemoglobin 23.8 pg (26-34); Mean Corpuscular Volume 84.6 fl (80-100); Mean Platelet Volume 8.2 fl (7.4-10.4); Platelet Count Result 126 k/mm3 (150-375); Red Blood Count 3.24 M/mm3 (4.6-6.20); Red Cell Distribution Width 17.3 % (11.5-14.5); White Blood Count 9.8 K/mm3 (4.5-10.0)
[2022-04-26 04:02] LABS: Alanine Aminotransferase 9 U/L (6-50); Albumin Level 2.2 g/dL (3.5-5.1); Alkaline Phosphatase 73 U/L (38-126); Anion Gap 7 mmol/L (8-16); Aspartate Amino Transferase 15 U/L (17-59); Bilirubin,Total 0.7 mg/dL (0.2-1.3); Blood Urea Nitrogen 32 mg/dL (9-20); Calcium 7.7 mg/dL (8.4-10.2); Carbon Dioxide 26 mmol/L (22-30); Chloride 103 mmol/L (98-107); Estimated CRCL calculation 81 ml/min; Estimated Glomerular Filt Rate > 60; Glucose 73 mg/dL (65-110); Magnesium 1.8 mg/dL (1.6-2.3); Phosphorus 4.5 mg/dL (2.5-4.5); Sodium 136 mmol/L (137-145)
[2022-04-26] MEDS: DOPamine 400 MG/D5W 250 ML 400 MG/250 ML BAG 17.46 MG IV CONT ×2 (05:00→18:52)
[2022-04-26] MEDS: SALINE LOCK FLUSH 10 ML IV PUSH ×3 (06:04→20:33)
[2022-04-26] MEDS: CENTRAL LINE FLUSH 10 ML IV PUSH ×3 (06:04→20:33)
[2022-04-26] MEDS: ALBUMIN HUMAN 25% 25 GM/100 ML 100 ML IVPB (08:40)
[2022-04-26] MEDS: PANTOPRAZOLE SODIUM IV 40 MG VIAL IV PUSH ×2 (08:40→20:33)
[2022-04-26] MEDS: FUROSEMIDE INJ 40 MG/4 ML VIAL IV PUSH (08:40)
--- NOTE | 2022-04-26 09:26 | WPDINTPN ---
Progress Note: A&P Assessment and Plan (1) Acute respiratory failure with hypoxia: Code(s): J96.01 - Acute respiratory failure with hypoxia Status: Acute Assessment and Plan: Patient was hypoxic with some respiratory distress, chest x-ray showed pulmonary edema likely related to IV fluids and blood transfusions, pneumonia is also possible, ARDS is another possibility Continue Lasix with albumin He has been on Airvo yesterday through the night but this morning he appeared tired and was doing abdominal breathing. I have placed him back on BiPAP 15/10 and 50% FiO2 for work of breathing. Will continue Airvo and BiPAP as needed. I will transition him to Airvo this morning and see if he tolerates. Obviously if he deteriorates he will need intubation and mechanical ventilation Continue close monitoring He is on broad-spectrum antibiotics (2) Septic shock: Code(s): A41.9 - Sepsis, unspecified organism; R65.21 - Severe sepsis with septic shock Status: Acute Assessment and Plan: Patient presented with altered mental status, was found to be hypotensive in the ER. He was also bradycardic, leukocytosis, lactic acidosis. Patient was diagnosed with septic shock Septic shock secondary to decubitus wound infection, osteomyelitis, recurrent UTI, ? Pneumonia, also contributed by anemia -patient received 3 L of IV fluid bolus, blood pressures were still refractory to fluids, patient was started initially on Levophed. -was found to be bradycardic in the ER, EKG showed junctional rhythm Levophed was switched to dopamine because of bradycardia in the ICU -continue dopamine to maintain heart rate. This has maintained his mean arterial pressures > 65 mmHg for adequate end organ perfusion -patient was initially started started on vancomycin and Zosyn (04/22) gentamicin was added (04/24) -blood cultures are negative till now -urine cultures is growing Providencia rettgeri which is sensitive to imipenem. Hold gentamicin -wound cultures is growing Staph aureus and yeast -clinically he is improving as his WBC count is normal and he has become afebrile (3) Pressure ulcer of unspecified buttock, unspecified stage: Code(s): L89.309 - Pressure ulcer of unspecified buttock, unspecified stage Status: Acute Assessment and Plan: - Multiple decubitus ulcers and some of which are infected -04/24 I spoke to wound care nurse who has evaluated patient in the past as out patient and she told me the patient's has multiple new ulcers and old ulcers are much more deeper. The ulcers on heels are new since last evaluation in the clinic -patient's told me that she takes care of his wound dressings and does not have any home health for wound care personal coming at home -dressing change were done done 04/24 -general surgery has evaluated the patient. Dr. Contreras would like Orthopedics to evaluate patient -I spoke to Dr. Denise with Orthopedics. He is going to discuss options of bilateral amputation versus debridement with patient's and also discuss with surgery -after discussion with both Orthopedics and General surgery, they recommend patient to be transferred to tertiary facility as he will need multidisciplinary approach including General surgery Plastic surgery and Orthopedics. Overall prognosis considering severity and extent of his wounds is poor -continue antibiotics as above 04/22: CT scan of the abdomen and pelvis showed small volume loculated pleural fluid, hepatic splenomegaly, possible mild fecal impaction, chronic cystitis, large perineal soft tissue defect extending to bone, early acute/chronic osteomyelitis and/or left hip septic arthritis not excluded. 04/22: X-ray of the bilateral feet showing Possible focus of acute osteomyelitis in the left distal phalanx. Large bilateral cutaneous defects over the heels, with possible exposure of bone on the right. Early acute and/or chronic osteomyelitis of the bilateral calcaneus cayla
--- NOTE | 2022-04-26 09:44 | PM.PNCARD ---
Progress Note: A&P Assessment and Plan (1) Acute respiratory failure with hypoxia: Code(s): J96.01 - Acute respiratory failure with hypoxia Status: Acute (2) Acute osteomyelitis of right calcaneus: Code(s): M86.171 - Other acute osteomyelitis, right ankle and foot Status: Acute (3) Acute osteomyelitis of left calcaneus: Code(s): M86.172 - Other acute osteomyelitis, left ankle and foot Status: Acute (4) Occult blood in stools: Code(s): R19.5 - Other fecal abnormalities Status: Acute (5) Bradycardia: Code(s): R00.1 - Bradycardia, unspecified Status: Acute (6) Sepsis: Code(s): A41.9 - Sepsis, unspecified organism Status: Acute Plan Patient currently in sinus bradycardia on Dopamine infusion.? Evidence of 2:1 av block possible Mobitz type 2 second-degree AV block followed by junctional rhythm at presentation. Repeat ECGs showing junctional bradycardia with PACs. Explained possibility he could progressed to high-grade AV block necessitating temporary transvenous pace maker and or ultimately require permanent pacemaker implantation. However, this is problematic due to his sepsis and osteomyelitis. At this time, would continue to monitor on telemetry. Continue Dopamine infusion - would avoid placing a temporary transvenous pacer line at this time. Keep electrolytes optimized. Avoid all AV tabatha blocking agents or any medication which may result in bradycardia. Awaiting transfer to [facility] Subjective Date/time seen: 04/26/22 09:44 Interval history: Reason for follow-up visit: Bradycardia Telemetry shows patient currently in sinus bradycardia. Has intermittent junctional rhythm with occasional pauses of up to 4 seconds. Patient denies feeling dizzy/lightheaded yesterday or overnight. Has not syncopized. Remains on Dopamine drip - currently @ 5. Date of service 04/26/2022: Accepted a [facility]. Rhythm is stable on dopamine Review of Systems Review of Systems: All systems reviewed & are unremarkable except as noted in HPI and below (subjective) Constitutional: Constitutional: Reports as per HPI and Reports no additional constitutional complaints Eyes: Eyes: Reports as per HPI and Reports no additional eye complaints ENT: Reports system reviewed and no additional complaints, except as documented and Reports as per HPI Cardiovascular: Cardiovascular: Reports as per HPI and Reports no additional cardiovascular complaints Respiratory: Respiratory: Reports as per HPI and Reports no additional respiratory complaints Gastrointestinal: Gastrointestinal: Reports as per HPI and Reports no additional gastrointestinal complaints Genitourinary: Genitourinary: Reports no additional male genitourinary complaints and Reports as per HPI Musculoskeletal: Musculoskeletal: Reports no additional musculoskeletal complaints and Reports as per HPI Integumentary/Breasts: Skin/Breast: Reports system reviewed and no additional complaints, except as docu and Reports as per HPI Neurologic: Reports system reviewed and no additional complaints, except as documented and Reports as per HPI Psychiatric: Psychiatric: Reports no additional psychiatric complaints and Reports as per HPI Endocrine: Endocrine: Reports no additional endocrine complaints and Reports as per HPI Hematologic/Lymphatic: Hematologic/Lymphatic: Reports no additional hematologic/lymphatic complaints and Reports as per HPI Allergic/Immunologic: Allergic/Immunologic: Reports no additional allergic/immunologic complaints and Reports as per HPI Exam Narrative: General: male lying supine in bed 30-45 degree angle wearing BiPAP, sleeping, arousable, otherwise well developed, alert and oriented unable to understand most responses due to continuous BiPAP. Patient does not appear to be in distress, comfortable, pleasant, and cooperative. Head: atraumatic, normocepha
--- NOTE | 2022-04-26 11:06 | PCSTNOTE ---
Patient currently is on BIPAP to assist with breathing/ oxygen levels. was instructed in use of safe swallowing strategies for when returns home.
--- NOTE | 2022-04-26 11:13 | PCFNICU ---
ICU Rounding Note: Pt current nutrition is Minced and Moist, Level 5. Last recorded weight is 93.1 kg, down from 94.6 kg on admit. Bowel Motility:+BM reported 04/23 Labs Reviewed:BUN 32, Na 136, Alb 2.2,Hct 27.4,Hgb 7.7 Meds Noted:Zosyn, dopamine, Ativan, Protonix Skin: stage IV coccyx, stage IV Right Ischium/Left Ischium, DT ankle, Right ankle stage IV, Stage III Thigh. Additional Notes: Patient on Airvo overnight. Current with Bipap. Patient had no intake for breakfast. Started Ensure compact BID today providing an additional 220 kcals and 9 gms protein. Protein Modular of Donta BID given for wound healing. Patient has been expected to [facility]. Agree with diet orders. Following daily in ICU rounds. Will monitor every 3 days.
--- NOTE | 2022-04-26 11:58 | PM.PNORT ---
Progress Note: A&P Assessment and Plan (1) Acute osteomyelitis of right calcaneus: Code(s): M86.171 - Other acute osteomyelitis, right ankle and foot Status: Acute Assessment and Plan: patient condition and treatment options reviewed with the patient and family yesterday. Amputation declined by both patient and family. Discussed possible debridement and limb salvage. Patient unstable to proceed to the operating room and surgery. Continue with wound care, daily dressing changes and IV antibiotics until condition stabilizes. Patient and family verbalized understanding. (2) Acute osteomyelitis of left calcaneus: Code(s): M86.172 - Other acute osteomyelitis, left ankle and foot Status: Acute Subjective Subjective Date/Time Seen: 04/26/22 11:58 Objective Data Vital Signs Vital Signs: Vital Signs - 24 hr 04/25/22 12:00 04/25/22 12:00 04/25/22 12:00 Temperature Pulse Rate 57 L 57 L 57 L Respiratory Rate 22 H 22 H Blood Pressure 117/54 L Pulse Oximetry 96 96 Oxygen Delivery High Flow Therapy with Na Oxygen Flow Rate 40 Fraction of Inspired Oxygen 50 04/25/22 12:00 04/25/22 14:00 04/25/22 14:00 Temperature 97.8 F Pulse Rate 58 L 58 L 58 L Respiratory Rate 17 21 H Blood Pressure 117/54 L 119/49 L Pulse Oximetry 96 93 Oxygen Delivery Oxygen Flow Rate Fraction of Inspired Oxygen 04/25/22 14:34 04/25/22 16:00 04/25/22 16:00 Temperature Pulse Rate 63 58 L 58 L Respiratory Rate 29 H Blood Pressure 122/50 L 122/58 L Pulse Oximetry 95 Oxygen Delivery Oxygen Flow Rate Fraction of Inspired Oxygen 04/25/22 16:00 04/25/22 18:00 04/25/22 18:00 Temperature Pulse Rate 58 L 57 L 55 L Respiratory Rate 29 H 25 H Blood Pressure 111/53 L Pulse Oximetry 95 93 Oxygen Delivery High Flow Therapy with Na Oxygen Flow Rate 40 Fraction of Inspired Oxygen 50 04/25/22 18:00 04/25/22 19:55 04/25/22 20:00 Temperature Pulse Rate 55 L 58 L Respiratory Rate 22 H Blood Pressure 110/51 L Pulse Oximetry 91 93 Oxygen Delivery High Flow Therapy with Na Oxygen Flow Rate 40 Fraction of Inspired Oxygen 50 04/25/22 20:00 04/25/22 20:00 04/25/22 22:00 Temperature 98.1 F Pulse Rate 58 L 58 L 57 L Respiratory Rate 20 20 Blood Pressure 118/49 L Pulse Oximetry 95 94 Oxygen Delivery High Flow Therapy with Na Oxygen Flow Rate 40 Fraction of Inspired Oxygen 50 04/25/22 22:00 04/25/22 23:40 04/25/22 23:40 Temperature Pulse Rate 57 L 57 L 57 L Respiratory Rate 14 16 Blood Pressure 114/50 L Pulse Oximetry 95 95 Oxygen Delivery High Flow Therapy with Na Oxygen Flow Rate 40 Fraction of Inspired Oxygen 50 04/26/22 00:00 04/26/22 02:00 04/26/22 02:00 Temperature 98.2 F Pulse Rate 57 L 59 L 59 L Respiratory Rate 16 14 Blood Pressure 113/48 L 119/47 L Pulse Oximetry 95 95 Oxygen Delivery Oxygen Flow Rate Fraction of Inspired Oxygen 04/26/22 04:00 04/26/22 04:00 04/26/22 04:00 Temperature 97.9 F Pulse Rate 57 L 57 L 57 L Respiratory Rate 20 20 Blood Pressure 120/50 L Pulse Oximetry 95 95 Oxygen Delivery High Flow Therapy with Na Oxygen Flow Rate 40 Fraction of Inspired Oxygen 50 04/26/22 06:00 04/26/22 06:00 04/26/22 05:00 Temperature Pulse Rate 58 L 59 L 58 L Respiratory Rate 14 Blood Pressure 120/49 L 118/50 L Pulse Oximetry 96 Oxygen Delivery Oxygen Flow Rate Fraction of Inspired Oxygen 04/26/22 08:00 04/26/22 08:00 04/26/22 08:00 Temperature Pulse Rate 55 L 57 L 92 Respiratory Rate 31 H 22 H Blood Pressure Pulse Oximetry 98 96 Oxygen Delivery BiPAP BiPAP Oxygen Flow Rate Fraction of Inspired Oxygen 40 04/25/22 23:30 04/25/22 23:32 04/25/22 23:45 Temperature Pulse Rate 58 L 59 L 58 L Respiratory Rate 25 H 22 H 13 Blood Pressure 116/51 L Pulse Oximetry 93 94 95 Oxygen Delivery Oxygen F
--- NOTE | 2022-04-26 15:24 | PM.IMPN ---
Progress Note: A&P Assessment and Plan (1) Acute respiratory failure with hypoxia: Code(s): J96.01 - Acute respiratory failure with hypoxia Status: Acute Assessment and Plan: Patient was hypoxic with some respiratory distress, chest x-ray showed pulmonary edema likely related to IV fluids and blood transfusions, pneumonia is also possible, ARDS is another possibility Continue Lasix with albumin on Airvo during daytime and BiPAP at night. He is on broad-spectrum antibiotics (2) Septic shock: Code(s): A41.9 - Sepsis, unspecified organism; R65.21 - Severe sepsis with septic shock Status: Acute Assessment and Plan: Patient presented with altered mental status, was found to be hypotensive in the ER. He was also bradycardic, leukocytosis, lactic acidosis. Patient was diagnosed with septic shock Septic shock secondary to decubitus wound infection, osteomyelitis, recurrent UTI, ? Pneumonia, also contributed by anemia -patient received 3 L of IV fluid bolus, blood pressures were still refractory to fluids, patient was started initially on Levophed. -was found to be bradycardic in the ER, EKG showed junctional rhythm Levophed was switched to dopamine because of bradycardia in the ICU -continue dopamine to maintain heart rate. This has maintained his mean arterial pressures > 65 mmHg for adequate end organ perfusion -patient was initially started started on vancomycin and Zosyn (04/22) gentamicin was added (04/24) -blood cultures are negative till now -urine cultures is growing Providencia rettgeri which is sensitive to imipenem. Hold gentamicin -wound cultures is growing Staph aureus and yeast -clinically he is improving as his WBC count is normal and he has become afebrile (3) Pressure ulcer of unspecified buttock, unspecified stage: Code(s): L89.309 - Pressure ulcer of unspecified buttock, unspecified stage Status: Acute Assessment and Plan: - Multiple decubitus ulcers and some of which are infected Wound Care following. Orthopedics in general surgery evaluated the patient. Discussed option of bilateral amputation versus debridement. Plan for transfer to tertiary facility for multidisciplinary approach including Plastic surgery/ general surgery/ Orthopedics for is extensive wound. CT abdomen and pelvis with large perineal soft tissue defect extending to bone, early acute/chronic osteomyelitis and/ or left hip septic arthritis not excluded. X-ray of bilateral feet with possible focus of acute osteomyelitis in the left distal phalanx. Large bilateral cutaneous defects over the heels with possible exposure bone on the right. Early acute and/or chronic osteomyelitis of bilateral calcaneus bones cannot be excluded. (4) UTI (urinary tract infection) due to urinary indwelling Kelly catheter: Code(s): T83.511A - Infection and inflammatory reaction due to indwelling urethral catheter, initial encounter; N39.0 - Urinary tract infection, site not specified Status: Acute Assessment and Plan: urine cultures is growing Providencia rettgeri which is sensitive to imipenem. Hold gentamicin History of multidrug resistant E coli Patient was given 1 dose of gentamicin earlier but will hold gentamicin as of now. Continue imipenem (5) Bradycardia: Code(s): R00.1 - Bradycardia, unspecified Status: Acute Assessment and Plan: Sinus bradycardia with intermittent junctional rhythm Currently on dopamine infusion and patient does not tolerate weaning down on dopamine Cardiology following and I have discussed case with Dr. Alfonso yesterday. May need transvenous pacemaker but at this point cardiology wants to avoid placing transfuse pacemaker due to him being septic (6) Anemia: Code(s): D64.9 - Anemia, unspecified Status: Acute Assessment and Plan: Patient was found to be severely anemic with hemoglobin of 5.5 on admission. Pt had black stools -hemoccult was positive
[2022-04-26] MEDS: SILVERGEL (ELTA) 45 ML 1 APPLIC TOPICAL (18:53)
--- NOTE | 2022-04-26 19:56 | PM.PNGS ---
Progress Note: A&P Assessment and Plan (1) Osteomyelitis: Code(s): M86.9 - Osteomyelitis, unspecified Status: Acute Assessment and Plan: Patient with multiple large wounds that extend to bone. He has a necrotic right heel ulcer with purulent drainage. X-rays suggested early acute and/or chronic osteomyelitis of the bilateral calcaneus bones. Left heel ulcer does not seem to probe to bone and no purulent drainage. He also has bilateral ischial wounds that probe to bone. The right ischial wound has some purulent drainage and necrotic tissue. Ortho has discussed with patient and and offered either bilateral BKA versus trying debridement to salvage the feet. Deferring treatment of the ischial ulcers to general surgery but bone is involved so I would recommend transfer to higher level of care where ortho, plastics, and wound care can be combining to allow the patient to have the best result for trying to rid him of the suspected very deep infection to bone in the pelvis. Especially when he has had previous complete excision of the femoral head on the right. Given his extensive previous orthopedic and plastic surgeries, we would recommend trying to transfer the patient to [facility], or another institution. He has previously had his flaps and treatment of decubitus [place]. We discussed this with the [facility] who will try working on transfer. Continue local wound care for now With daily re-dressing of the deep decubitus I using sterile on folded 4x4s with silver gel. Will try to review with wound care nurses and see any of these are amenable to a wound VAC, irrigating wound VAC or changing to Dakin solution. Specially in view of culture showing some yeast in 1 of the wounds. Continue broad-spectrum IV antibiotics. Cultures of wounds still pending. (2) Septic shock: Code(s): A41.9 - Sepsis, unspecified organism; R65.21 - Severe sepsis with septic shock Status: Acute Assessment and Plan: Source of sepsis could be related to infected decubitus ulcers, osteomyelitis, recurrent UTI, or multifactorial. Continue IV antibiotics. See plan above regarding wounds. Wound cultures pending from left groin wound, right foot ulcer and right ankle ulcer. Urine cx growing gram negative bacilli, awaiting final results. Blood cx NGTD. Right groin wound is culturing yeast. ( I called [facility] and asked them to go ahead with further identification and possible sensitivities on 04/26/2022 ). (3) Protein calorie malnutrition: Code(s): E46 - Unspecified protein-calorie malnutrition Status: Acute (4) Acute on chronic anemia: Code(s): D64.9 - Anemia, unspecified Status: Acute (5) Pressure ulcers of skin of multiple topographic sites: Code(s): L89.90 - Pressure ulcer of unspecified site, unspecified stage Status: Acute (6) Quadriplegia, C5-C7 incomplete: Code(s): G82.54 - Quadriplegia, C5-C7 incomplete Status: Acute (7) Hypoxia: Code(s): R09.02 - Hypoxemia Status: Acute Assessment and Plan: Currently on high flow O2. Increases risks for any surgical intervention. (8) GI bleed: Code(s): K92.2 - Gastrointestinal hemorrhage, unspecified Status: Acute Assessment and Plan: GI still deferring endoscopy due to respiratory status. Continue empiric treatment for stress ulceration. Plan I have discussed the patient's case and plan of care with Dr. Contreras. Subjective Subjective Date/Time Seen: 04/26/22 18:16 Patient reports: no new complaints and feels better Interval history: No chills. Patient's at bedside. They are awaiting transfer to [facility] or other tertiary care institution in view of his multiple problems. Review of Systems Review of Systems: All systems reviewed & are unremarkable except as noted in HPI and below Constitutional: Constitutional: Reports as per HPI, Denies ch
[2022-04-26 20:57] LABS: Vancomycin Trough 29.7 ug/mL (10.0-20.0)
[2022-04-27] VITALS (10 sets, daily range): BP systolic 118–155; BP diastolic 43–66; PULSE 45–59; RESP 12–23; TEMP 35.7–36.5; O2SAT 93–100
--- NOTE | 2022-04-27 03:36 | PCRCNOTE ---
Patient has been agitated/uncomfortable all night and refused use of the bipap. Patient resting comfortably on high flow therapy 50L 50%
[2022-04-27] MEDS: CENTRAL LINE FLUSH 10 ML IV PUSH ×2 (05:16→13:23)
[2022-04-27] MEDS: SALINE LOCK FLUSH 10 ML IV PUSH ×2 (05:16→13:23)
[2022-04-27 05:18] LABS: Hematocrit 26.3 % (42.0-52.0); Hemoglobin 7.5 g/dL (14.0-18.0); Mean Corpuscular HGB Conc 28.5 g/dl (32-36); Mean Corpuscular Hemoglobin 23.6 pg (26-34); Mean Corpuscular Volume 82.7 fl (80-100); Mean Platelet Volume 8.7 fl (7.4-10.4); Platelet Count Result 126 k/mm3 (150-375); Red Blood Count 3.18 M/mm3 (4.6-6.20); White Blood Count 8.6 K/mm3 (4.5-10.0)
[2022-04-27 05:32] LABS: Alanine Aminotransferase 9 U/L (6-50); Albumin Level 2.4 g/dL (3.5-5.1); Alkaline Phosphatase 71 U/L (38-126); Anion Gap 10 mmol/L (8-16); Aspartate Amino Transferase 15 U/L (17-59); Bilirubin,Total 0.8 mg/dL (0.2-1.3); Blood Urea Nitrogen 25 mg/dL (9-20); Calcium 8.4 mg/dL (8.4-10.2); Carbon Dioxide 29 mmol/L (22-30); Chloride 105 mmol/L (98-107); Estimated CRCL calculation 81 ml/min; Estimated Glomerular Filt Rate > 60; Glucose 72 mg/dL (65-110); Magnesium 1.9 mg/dL (1.6-2.3); Phosphorus 3.9 mg/dL (2.5-4.5); Potassium 2.6 mmol/L (3.4-5.0); Sodium 144 mmol/L (137-145)
[2022-04-27 06:17] LABS: Anion Gap 10 mmol/L (8-16); Blood Urea Nitrogen 26 mg/dL (9-20); Calcium 8.1 mg/dL (8.4-10.2); Carbon Dioxide 27 mmol/L (22-30); Chloride 105 mmol/L (98-107); Estimated CRCL calculation 102 ml/min; Estimated Glomerular Filt Rate > 60; Glucose 78 mg/dL (65-110); Potassium 2.8 mmol/L (3.4-5.0); Sodium 142 mmol/L (137-145)
[2022-04-27] MEDS: KCL 40 MEQ/WATER 100 ML 100 ML 25 ML IVPB ×2 (06:18→15:38)
--- NOTE | 2022-04-27 06:34 | PCRCNOTE ---
Patient decided to try the bipap at 0355. RT encouraged patient to use for a few hours. Patient agreed to.
[2022-04-27] MEDS: SILVERGEL (ELTA) 45 ML 1 APPLIC TOPICAL (09:05)
[2022-04-27] MEDS: PANTOPRAZOLE SODIUM IV 40 MG VIAL IV PUSH (09:05)
[2022-04-27] MEDS: DOPamine 400 MG/D5W 250 ML 400 MG/250 ML BAG 17.46 MG IV CONT (09:05)
--- NOTE | 2022-04-27 09:16 | WPDINTPN ---
Progress Note: A&P Assessment and Plan (1) Septic shock: Code(s): A41.9 - Sepsis, unspecified organism; R65.21 - Severe sepsis with septic shock Status: Acute Assessment and Plan: Patient presented with altered mental status, was found to be hypotensive in the ER. He was also bradycardic, leukocytosis, lactic acidosis. Patient was diagnosed with septic shock -Septic shock secondary to decubitus wound infection, osteomyelitis, recurrent UTI, ? Pneumonia, also contributed by anemia -patient received 3 L of IV fluid bolus on admission, blood pressures were still refractory to fluids, patient was started initially on Levophed. -was found to be bradycardic in the ER, EKG showed junctional rhythm Levophed was switched to dopamine because of bradycardia in the ICU -continue dopamine to maintain heart rate. This has maintained his mean arterial pressures > 65 mmHg for adequate end organ perfusion -patient was initially started started on vancomycin and Zosyn (04/22) gentamicin was added (04/24) -blood cultures are negative till now -urine cultures is growing Providencia rettgeri which is sensitive to imipenem. Hold gentamicin -wound cultures is growing Staph aureus and yeast -clinically he is improving as his WBC count is normal and he has become afebrile (2) Acute respiratory failure with hypoxia: Code(s): J96.01 - Acute respiratory failure with hypoxia Status: Acute Assessment and Plan: Patient was hypoxic with some respiratory distress, chest x-ray showed pulmonary edema likely related to IV fluids and blood transfusions, pneumonia is also possible, ARDS is another possibility -patient has been on BiPAP 22/04 overnight, during the day he is on Airvo high-flow therapy. Will continue Airvo and BiPAP as needed. Obviously if he deteriorates he will need intubation and mechanical ventilation Continue close monitoring ON Abx as above - Will diurese again today along with Albumin (3) Pressure ulcer of unspecified buttock, unspecified stage: Code(s): L89.309 - Pressure ulcer of unspecified buttock, unspecified stage Status: Acute Assessment and Plan: - Multiple decubitus ulcers and some of which are infected -04/24 I spoke to wound care nurse who has evaluated patient in the past as out patient and she told me the patient's has multiple new ulcers and old ulcers are much more deeper. The ulcers on heels are new since last evaluation in the clinic -patient's told me that she takes care of his wound dressings and does not have any home health for wound care personal coming at home -dressing change were done done 04/24 -general surgery has evaluated the patient. Dr. Contreras would like Orthopedics to evaluate patient -I spoke to Dr. Denise with Orthopedics. He is going to discuss options of bilateral amputation versus debridement with patient's and also discuss with surgery -after discussion with both Orthopedics and General surgery, they recommend patient to be transferred to tertiary facility as he will need multidisciplinary approach including General surgery Plastic surgery and Orthopedics. Overall prognosis considering severity and extent of his wounds is poor -continue antibiotics as above 04/22: CT scan of the abdomen and pelvis showed small volume loculated pleural fluid, hepatic splenomegaly, possible mild fecal impaction, chronic cystitis, large perineal soft tissue defect extending to bone, early acute/chronic osteomyelitis and/or left hip septic arthritis not excluded. 04/22: X-ray of the bilateral feet showing Possible focus of acute osteomyelitis in the left distal phalanx. Large bilateral cutaneous defects over the heels, with possible exposure of bone on the right. Early acute and/or chronic osteomyelitis of the bilateral calcaneus bones cannot be excluded (4) UTI (urinary tract infection) due to urinary indwelling Kelly catheter: Code(s): T83.511A - Infection and inflammatory re
--- NOTE | 2022-04-27 09:53 | PM.PNCARD ---
Progress Note: A&P Assessment and Plan (1) Acute respiratory failure with hypoxia: Code(s): J96.01 - Acute respiratory failure with hypoxia Status: Acute (2) Acute osteomyelitis of right calcaneus: Code(s): M86.171 - Other acute osteomyelitis, right ankle and foot Status: Acute (3) Acute osteomyelitis of left calcaneus: Code(s): M86.172 - Other acute osteomyelitis, left ankle and foot Status: Acute (4) Occult blood in stools: Code(s): R19.5 - Other fecal abnormalities Status: Acute (5) Bradycardia: Code(s): R00.1 - Bradycardia, unspecified Status: Acute (6) Sepsis: Code(s): A41.9 - Sepsis, unspecified organism Status: Acute Plan Patient currently in sinus bradycardia on Dopamine infusion.? Evidence of 2:1 av block possible Mobitz type 2 second-degree AV block followed by junctional rhythm at presentation. Repeat ECGs showing junctional bradycardia with PACs. Explained possibility he could progressed to high-grade AV block necessitating temporary transvenous pace maker and or ultimately require permanent pacemaker implantation. However, this is problematic due to his sepsis and osteomyelitis. At this time, would continue to monitor on telemetry. Continue Dopamine infusion - would avoid placing a temporary transvenous pacer line at this time. Keep electrolytes optimized. Avoid all AV tabatha blocking agents or any medication which may result in bradycardia. Awaiting transfer to [facility] Subjective Date/time seen: 04/27/22 09:54 Interval history: Reason for follow-up visit: Bradycardia Telemetry shows patient currently in sinus bradycardia. Has intermittent junctional rhythm with occasional pauses of up to 4 seconds. Patient denies feeling dizzy/lightheaded yesterday or overnight. Has not syncopized. Remains on Dopamine drip - currently @ 5. Date of service 04/27/2022: Accepted a [facility]. Still having intermittent pauses. Asymptomatic. No chest pain Review of Systems Review of Systems: All systems reviewed & are unremarkable except as noted in HPI and below (subjective) Constitutional: Constitutional: Reports as per HPI and Reports no additional constitutional complaints Eyes: Eyes: Reports as per HPI and Reports no additional eye complaints ENT: Reports system reviewed and no additional complaints, except as documented and Reports as per HPI Cardiovascular: Cardiovascular: Reports as per HPI and Reports no additional cardiovascular complaints Respiratory: Respiratory: Reports as per HPI and Reports no additional respiratory complaints Gastrointestinal: Gastrointestinal: Reports as per HPI and Reports no additional gastrointestinal complaints Genitourinary: Genitourinary: Reports no additional male genitourinary complaints and Reports as per HPI Musculoskeletal: Musculoskeletal: Reports no additional musculoskeletal complaints and Reports as per HPI Integumentary/Breasts: Skin/Breast: Reports system reviewed and no additional complaints, except as docu and Reports as per HPI Neurologic: Reports system reviewed and no additional complaints, except as documented and Reports as per HPI Psychiatric: Psychiatric: Reports no additional psychiatric complaints and Reports as per HPI Endocrine: Endocrine: Reports no additional endocrine complaints and Reports as per HPI Hematologic/Lymphatic: Hematologic/Lymphatic: Reports no additional hematologic/lymphatic complaints and Reports as per HPI Allergic/Immunologic: Allergic/Immunologic: Reports no additional allergic/immunologic complaints and Reports as per HPI Exam Narrative: General: male lying supine in bed 30-45 degree angle wearing BiPAP, sleeping, arousable, otherwise well developed, alert and oriented unable to understand most responses due to continuous BiPAP. Patient does not appear to be in distress, comfortable, pleasant, and cooperative. H
[2022-04-27 10:08] LABS: Glucose Point of Care 69 mg/dl (65-105)
[2022-04-27] MEDS: DEXTROSE 50% 25 GM/50 ML SYRINGE IV PUSH (10:40)
--- NOTE | 2022-04-27 11:39 | PCFNICU ---
ICU Rounding Note: Pt current nutrition is Mined and Moist, Level 5 with Ensure compact BID and Donta BID. Last recorded weight is 93.2 kg, down from 94.6 kg on admit. Bowel Motility:+BM reported 04/23 Labs Reviewed:BUN 26, K 2.8,Hgb 7.5,Hct 26.3,Alb 2.4 Meds Noted:Dopamine, Protonix, Imipenem, NovoLog, Micafungin. Skin: stage IV coccyx, stage IV Right Ischium/Left Ischium, DT ankle, Right ankle stage IV, Stage III Thigh. Additional Notes: Patient remains on Minced and Moist, Level 5 diet. No intake this morning per nursing. Patient on Airvo at this time. Plans for xray for possible obstruction. Patient remains on diet supplements of Ensure compact BID providing 220 kcals and 9 gms protein and protein modular of Donta BID providing 90 kcals and 2.5 gms protein. Agree with diet orders at this time. Following daily in ICU rounds. Will monitor every 3 days.
[2022-04-27] MEDS: ALBUMIN HUMAN 25% 25 GM/100 ML 100 ML IVPB (12:10)
[2022-04-27] MEDS: FUROSEMIDE INJ 40 MG/4 ML VIAL IV PUSH (12:11)
[2022-04-27] MEDS: MICAFUNGIN SODIUM 100 MG in SODIUM CHLORIDE 0.9% IV 100 ML IVPB (12:11)
[2022-04-27 13:28] LABS: Glucose Point of Care 76 mg/dl (65-105)
[2022-04-27 15:47] LABS: Glucose Point of Care 82 mg/dl (65-105)
--- NOTE | 2022-04-27 15:54 | PM.TDS ---
Transfer Discharge Sum: Prov Provider Date of admission: 04/22/22 18:03 Primary care physician: Marco Antonio Oconnell DO Admitting clinician: Ej Flynn MD Consults: 04/22/22 Consult to Physician Routine Comment: Spoke with exchange @ [phone] (,) Consulting Provider: Joao Contreras orthopedically impaired teacher/MD group to consult: surgery Reason for consultation: Pressure wounds on coccyx and heels Has provider been notified: Yes Consult to Physician Routine Comment: Spoke with exchange @ 0727 (, ) Consulting Provider: Miguelito Etienne orthopedically impaired teacher/MD group to consult: cardiology Reason for consultation: bradycardia, elevated troponin Has provider been notified: Yes Wound/ET Consult Routine Reason for Consult:: pressure wounds 04/22/22 18:06 Consult to Physician Routine Comment: Consulting Provider: Jose C Gee Reason for consultation: Sepsis Has provider been notified: Yes 04/22/22 18:07 Consult to Physician Routine Comment: Consulting Provider: Andrei Coley Reason for consultation: GI bleed Has provider been notified: Yes 04/24/22 Consult to Physician Routine Comment: Spoke with office @ 2255 (, ) Consulting Provider: True Denise orthopedically impaired teacher/MD group to consult: Orthopedics Reason for consultation: Osteomyelitis, Sepsis, From Dr. Contreras Has provider been notified: Yes DS: Admitting Diagnosis Discharge Date 04/27/2022 Admitting Diagnosis sepsis DS: Discharge Diagnosis Discharge Diagnosis (1) Acute respiratory failure with hypoxia: Code(s): J96.01 - Acute respiratory failure with hypoxia Status: Acute (2) Septic shock: Code(s): A41.9 - Sepsis, unspecified organism; R65.21 - Severe sepsis with septic shock Status: Acute (3) Pressure ulcer of unspecified buttock, unspecified stage: Code(s): L89.309 - Pressure ulcer of unspecified buttock, unspecified stage Status: Acute (4) UTI (urinary tract infection) due to urinary indwelling Kelly catheter: Code(s): T83.511A - Infection and inflammatory reaction due to indwelling urethral catheter, initial encounter; N39.0 - Urinary tract infection, site not specified Status: Acute (5) Bradycardia: Code(s): R00.1 - Bradycardia, unspecified Status: Acute (6) Anemia: Code(s): D64.9 - Anemia, unspecified Status: Acute (7) Acute GI bleeding: Code(s): K92.2 - Gastrointestinal hemorrhage, unspecified Status: Acute (8) Protein calorie malnutrition: Code(s): E46 - Unspecified protein-calorie malnutrition Status: Acute (9) Quadriplegic spinal paralysis: Code(s): G82.50 - Quadriplegia, unspecified Status: Acute (10) Osteomyelitis: Code(s): M86.9 - Osteomyelitis, unspecified Status: Acute (11) Pneumonia: Code(s): J18.9 - Pneumonia, unspecified organism Status: Acute Transfer Discharge Sum: Med Medications Active and Home Medications: Home Medications potassium citrate 10 mEq (1,080 mg) tablet,extended release 10 meq PO TID 06/13/19 [History Confirmed 04/22/22] ascorbic acid (vitamin C) 500 mg capsule 500 mg PO BID 10/30/19 [History Confirmed 04/22/22] ferrous sulfate 324 mg (65 mg iron) tablet,delayed release 324 mg PO BID 10/30/19 [History Confirmed 04/22/22] sennosides 8.6 mg-docusate sodium 50 mg tablet 1 tab-cap PO DAILY 10/30/19 [History Confirmed 04/22/22] bupropion HCl 150 mg 24 hr tablet, extended release 150 mg PO QAM 04/19/21 [History Confirmed 04/22/22] donepezil 5 mg tablet 10 mg PO DAILY 04/19/21 [History Confirmed 04/22/22] mecobalamin (vitamin B12) 5,000 mcg disintegrating tablet 5,000 mcg PO DAILY 04/19/21 [History Confirmed 04/22/22] vitamin E (dl, acetate) 180 mg (400 unit) capsule 180 mg PO QPM 04/19/21 [History Confirmed 04/22/22] omeprazole 20 mg capsule,delayed release 20 mg PO DAILY #90 caps 05/05/21 [Rx Confirmed 04/22/22] ciprofloxacin HCl 250 mg tablet 250 mg
--- NOTE | 2022-04-27 17:34 | PM.PNGS ---
Progress Note: A&P Assessment and Plan (1) Osteomyelitis: Code(s): M86.9 - Osteomyelitis, unspecified Status: Acute Assessment and Plan: Patient with multiple large wounds that extend to bone. He has a necrotic right heel ulcer with purulent drainage. X-rays suggested early acute and/or chronic osteomyelitis of the bilateral calcaneus bones. Left heel ulcer does not seem to probe to bone and no purulent drainage. He also has bilateral ischial wounds that probe to bone. The right ischial wound has some purulent drainage and necrotic tissue. Ortho has discussed with patient and and offered either bilateral BKA versus trying debridement to salvage the feet. Deferring treatment of the ischial ulcers to general surgery , but bone is involved so I would recommend transfer to higher level of care where ortho, plastics, and wound care can be combining to allow the patient to have the best result for trying to rid him of the suspected very deep infection to bone in the pelvis. Especially when he has had previous complete excision of the femoral head on the right. Given his extensive previous orthopedic and plastic surgeries, we would recommend trying to transfer the patient to [facility], or another institution. He has previously had his flaps and treatment of decubitus done at [place] per his . We discussed this with the Case Work Aide who will try working on transfer. Continue local wound care for now With daily re-dressing of the deep decubitus I using sterile on folded 4x4s with silver gel. One of the cultures from the ischial wounds is showing some on identified growth of yeast . --- see note below under septic shock Continue broad-spectrum IV antibiotics. Cultures of wounds still pending. (2) Septic shock: Code(s): A41.9 - Sepsis, unspecified organism; R65.21 - Severe sepsis with septic shock Status: Acute Assessment and Plan: Source of sepsis could be related to infected decubitus ulcers, osteomyelitis, recurrent UTI, or multifactorial. Continue IV antibiotics. See plan above regarding wounds. Wound cultures pending from left groin wound, right foot ulcer and right ankle ulcer. Urine cx growing gram negative bacilli, awaiting final results. Blood cx NGTD. Right groin wound is culturing yeast. ( I called [facility] and asked them to go ahead with further identification and possible sensitivities on 04/26/2022 ). (3) Protein calorie malnutrition: Code(s): E46 - Unspecified protein-calorie malnutrition Status: Acute (4) Acute on chronic anemia: Code(s): D64.9 - Anemia, unspecified Status: Acute (5) Pressure ulcers of skin of multiple topographic sites: Code(s): L89.90 - Pressure ulcer of unspecified site, unspecified stage Status: Acute (6) Quadriplegia, C5-C7 incomplete: Code(s): G82.54 - Quadriplegia, C5-C7 incomplete Status: Acute (7) Hypoxia: Code(s): R09.02 - Hypoxemia Status: Acute Assessment and Plan: Currently on high flow O2. Increases risks for any surgical intervention. (8) GI bleed: Code(s): K92.2 - Gastrointestinal hemorrhage, unspecified Status: Acute Assessment and Plan: GI still deferring endoscopy due to respiratory status. Continue empiric treatment for stress ulceration. Plan discussed this patient's case with our health analyst Dr. Gee today. Subjective Subjective Date/Time Seen: 04/27/22 12:34 Patient reports: other (Some shortness of breath) Review of Systems Review of Systems: All systems reviewed & are unremarkable except as noted in HPI and below Constitutional: Constitutional: Reports as per HPI, Denies chills and Denies fever(s) Gastrointestinal: Gastrointestinal: Reports as per HPI and Denies bloating Musculoskeletal: Musculoskeletal: Reports no additional musculoskeletal complaints Neurologic: Denies memory loss Psychiatric: Psychiat
== END 2022-04-27 18:51 | disposition short-term general hospital (02) | DRG 698 ==
LOC: ANHED 18:01 → ANHICU 18:20
PROVIDERS: Internal Medicine; Physician Assistant; Admitting Provider Family Medicine; Emergency Provider Emergency Medicine; PCP Internal Medicine; Visit Provider Internal Medicine
DX: T83.518A Infection and inflammatory reaction due to other urinary catheter, initial encounter (principal); A41.9 Sepsis, unspecified organism; G82.54 Quadriplegia, C5-C7 incomplete; L89.154 Pressure ulcer of sacral region, stage 4; L89.623 Pressure ulcer of left heel, stage 3; L89.614 Pressure ulcer of right heel, stage 4; R65.21 Severe sepsis with septic shock; J96.01 Acute respiratory failure with hypoxia; J18.9 Pneumonia, unspecified organism; N39.0 Urinary tract infection, site not specified; E46 Unspecified protein-calorie malnutrition; M86.172 Other acute osteomyelitis, left ankle and foot; M86.171 Other acute osteomyelitis, right ankle and foot; M86.8X8 Other osteomyelitis, other site; K92.2 Gastrointestinal hemorrhage, unspecified; Z20.822 Contact with and (suspected) exposure to COVID-19; S14.155S Other incomplete lesion at C5 level of cervical spinal cord, sequela; V49.9XXS Car occupant (driver) (passenger) injured in unspecified traffic accident, sequela; B96.89 Other specified bacterial agents as the cause of diseases classified elsewhere; D64.9 Anemia, unspecified; R00.1 Bradycardia, unspecified; R77.8 Other specified abnormalities of plasma proteins; M25.452 Effusion, left hip; K21.9 Gastro-esophageal reflux disease without esophagitis; M54.9 Dorsalgia, unspecified; G89.29 Other chronic pain; R41.3 Other amnesia; F41.9 Anxiety disorder, unspecified; F32.A Depression, unspecified; G62.9 Polyneuropathy, unspecified; I73.9 Peripheral vascular disease, unspecified; Z79.899 Other long term (current) drug therapy; Z86.718 Personal history of other venous thrombosis and embolism; Z87.11 Personal history of peptic ulcer disease; Z87.440 Personal history of urinary (tract) infections; Z87.891 Personal history of nicotine dependence; Z98.1 Arthrodesis status
CPT/HCPCS: 36415; 36430; 36556; 36569; 36600; 70450; 71045; 73630; 74019; 74177; 80048; 80053; 80170; 80202; 80307; 81001; 82140; 82274; 82375; 82805; 82948; 83050; 83605; 83735; 84100; 84134; 84443; 84484; 85014; 85018; 85025; 85027; 85610; 85730; 86140; 86850; 86900; 86901; 86920; 87040; 87070; 87077; 87086; 87088; 87106; 87147; 87186; 87205; 87502; 92610; 93005; 93306; 93970; 94002; 94003; 94640; 96365; 96367; 96375; 99285; A9270; C1751; C9113; C9803; J0461; J0743; J1265; J1580; J1940; J1956; J2060; J2248; J2405; J2543; J3370; J3480; J7030; J7050; P9016; P9047; Q9967; U0003; U0005